=== PATIENT | male | born 1945 | race Caucasian/White ===

== ENCOUNTER 2019-12-07 13:45 | IRF | payer MEDICARE, SELFPAY ==
--- NOTE | 2019-12-07 14:02 | ADMGEN ---
This patient, Rob Quiros, was admitted to [facility] Room 226-01. Patient/family oriented to hospital policies and general routines including ID bracelet, bed and alarms, visiting hours, pain management, procedures, bathroom and other care routines, personal items, smoking policy, room service/diet, and visiting hours. Valuables list has been completed. Information on how to activate the Rapid Response Team has been discussed. Patient/Family are encouraged to report perceived risks to care and to ask questions if they do not understand what they are told or what they should do. 1345 resident arrived to unit, transported by [facility] per ambulance patient stable for transport. alert and oriented
[2019-12-07 15:56] VITALS: BP 133/65; PULSE 72; RESP 20; TEMP 36.1; O2SAT 100
[2019-12-07] MEDS: SENNA/DOCUSATE SODIUM TABLET 1 TAB PO (17:55)
[2019-12-07] MEDS: MUPIROCIN 2% OINT 22 GM TUBE 1 APPLIC TOPICAL (17:55)
[2019-12-07] MEDS: amLODIPine BESYLATE 5 MG TABLET PO (17:55)
[2019-12-07] MEDS: DEXAMETHASONE 2 MG TABLET PO (17:55)
[2019-12-07] MEDS: metFORMIN HCL 500 MG TABLET 1000 MG PO (17:56)
[2019-12-07 20:11] VITALS: BP 132/62; PULSE 86; RESP 18; TEMP 36.2; O2SAT 97
[2019-12-07 20:30] LABS: Glucose Point of Care 298 (65-105)
[2019-12-07] MEDS: CEPHALEXIN 500 MG CAPSULE PO ×2 (22:24→23:33)
[2019-12-07] MEDS: INSULIN GLARGINE (LANTUS) 1,000 UNITS/10 ML VIAL 44 UNITS SUB-Q (22:25)
[2019-12-08] MEDS: CEPHALEXIN 500 MG CAPSULE PO ×4 (05:07→22:14)
[2019-12-08 05:17] VITALS: BP 144/80; PULSE 76; RESP 18; TEMP 35.8; O2SAT 99
[2019-12-08 05:22] LABS: Basophils Percent Auto 0.2 % (0.2-1.2); Hematocrit 41.7 % (42.0-52.0); Hemoglobin 14.3 g/dL (14.0-18.0); Immature Granulocyte Percent A 1.1 % (0-0.5); Lymphocytes Absolute Auto 1.51 K/mm3 (0.9-3.2); Lymphocytes Percent Auto 8.5 % (18.3-44.2); Mean Corpuscular HGB Conc 34.3 g/dl (32-36); Mean Corpuscular Hemoglobin 31.4 pg (26-34); Mean Corpuscular Volume 91.6 fl (80-100); Mean Platelet Volume 10.7 fl (7.4-10.4); Monocytes Absolute Auto 1.3 K/mm3 (0.1-0.6); Monocytes Percent Auto 7.1 % (2.6-8.5); Neutrophils Absolute Auto 14.7 K/mm3 (1.3-6.7); Neutrophils Percent Auto 83.1 % (45.5-73.1); Platelet Count Result 266 k/mm3 (150-375); Red Blood Count 4.55 M/mm3 (4.6-6.20); Red Cell Distribution Width 13.5 % (11.5-14.5); White Blood Count 17.7 K/mm3 (4.5-10.0)
[2019-12-08 05:38] LABS: Anion Gap 8 mmol/L (8-16); Blood Urea Nitrogen 32 mg/dL (9-20); Calcium 8.7 mg/dL (8.4-10.2); Carbon Dioxide 24 mmol/L (22-30); Chloride 102 mmol/L (98-107); Estimated Glomerular Filt Rate > 60; Glucose 174 mg/dL (75-110); Potassium 4.5 mmol/L (3.4-5.0); Sodium 134 mmol/L (137-145)
[2019-12-08 06:50] LABS: Glucose Point of Care 206 (65-105)
[2019-12-08] MEDS: INSULIN ASPART (*BKC) 100 UNITS/ML SUB-Q ×3 (07:11→17:43)
[2019-12-08 08:00] VITALS: PULSE 76; RESP 18; O2SAT 99
[2019-12-08 09:24] LABS: Hemoglobin A1C 7.7 % (<5.7)
[2019-12-08] MEDS: DEXAMETHASONE 2 MG TABLET PO ×2 (09:36→17:37)
[2019-12-08] MEDS: POTASSIUM CHLORIDE 10 MEQ TABLET.ER PO (09:36)
[2019-12-08] MEDS: ATORVASTATIN 20 MG TABLET PO (09:36)
[2019-12-08] MEDS: lisinopriL 20 MG TABLET 60 MG PO (09:36)
[2019-12-08] MEDS: metFORMIN HCL 500 MG TABLET 1000 MG PO ×2 (09:36→17:37)
[2019-12-08] MEDS: CALCIUM CARBONATE (OSCAL) 500 MG TABLET 1000 MG PO (09:37)
[2019-12-08] MEDS: TAMSULOSIN HCL 0.4 MG CAPSULE PO (09:37)
[2019-12-08] MEDS: amLODIPine BESYLATE 5 MG TABLET PO ×2 (09:37→17:36)
[2019-12-08] MEDS: SENNA/DOCUSATE SODIUM TABLET 1 TAB PO (09:38)
[2019-12-08] MEDS: allopurinoL 300 MG TABLET PO (09:38)
[2019-12-08 09:39] VITALS: PULSE 76
[2019-12-08] MEDS: MUPIROCIN 2% OINT 22 GM TUBE 1 APPLIC TOPICAL ×2 (09:39→17:37)
[2019-12-08] MEDS: METOPROLOL TARTRATE 50 MG TAB PO (09:39)
[2019-12-08] MEDS: LIDOCAINE 5% PATCH 1 PATCH TOPICAL (09:39)
[2019-12-08] MEDS: CHOLECALCIFEROL 1,000 UNITS TABLET 5000 UNITS PO (09:39)
[2019-12-08 11:56] LABS: Glucose Point of Care 283 (65-105)
[2019-12-08 12:05] VITALS: TEMP 35.8
[2019-12-08] MEDS: ACETAMINOPHEN 325 MG TABLET 650 MG PO ×2 (12:05→22:13)
--- NOTE | 2019-12-08 12:44 | WPDREHABHP ---
H&P: HPI History of Present Illness Date/Time: 12/08/19 12:44 Chief complaint: cervical myelopathy Narrative: Rob Quiros is a 74 year old maleAdmitted to the rehab floor of [facility] with the primary rehab impairment category of the spinal cord dysfunction that is known traumatic in nature and with etiological diagnosis of C3-C4 C5 spinal cord edema and compression with cervical myelopathy patient is 74 years old male with past medical history of diabetes mellitus hypertension hyperlipidemia doubt degenerative disc disease and carpal tunnel syndrome he initially presented to [facility] on November 29, 2019 to be evaluated for generalized weakness and was admitted to [facility] in [facility] from October 14, 2019 through October 19, 2019 after a fall he was found to have lumbar spine degenerative disc disease and was not interested in surgery at that particular time. After being discharged from [facility] he was admitted to [address] [place] [address] where he stayed for 17 days and then discharged home. After being at home the patient fell twice. He was admitted to [facility] from [id number] to [id number] and had a brain MRI that was negative. All attempts of his skilled rehabilitation did nothing to improve the patient's symptom he reported his legs buckling recently while being assisted to his wheelchair and he had to ease himself or to his buttocks. He endorses pain in the buttocks since this event patient was planning to get carpal tunnel surgery as he struggles with daily tasks and holding things. MRI of the cervical spine this admission was concerning for cord compression neurosurgery was consulted and the patient was admitted for further evaluation and treatment. Neurosurgery started the patient on high-dose of his steroids and pace the patient hard cervical collar at all times but no exception. Patient underwent a cervical fusion and durotomy on December 04, [address] yusuf Gandhi postoperative the patient experiencing acute blood-loss became anemic became hypertensive and also developed a steroid induced leukocytosis and acute postoperative pain. He is currently hemodynamically stable. Hypertension is controlled with amlodipine, diltiazem, lisinopril and metoprolol leukocytosis is steroid-induced and patient remains on his steroids and they have been switched to oral. Acute postoperative pain managed with oral analgesics HERNANDO drain has been removed 40 catheter has been removed the patient voiding spontaneously doubt any issues he will not be on chemical prophylaxis for DVT point given his recent surgery patient has not traveled outside the [place] or had contact with someone was ill that his travel outside the [place] in the past 21 days. The patient has no traveled to [place] area of the [place] that is experiencing known transmission of the Coronavirus and has not had close personal contact with anyone that has. the patient does not have a fever he is not experiencing lower respiratory illness symptoms he was tested for COVID-19 on November 29, 2019 and the results were negative therapy was initiated at the acute care facility and the patient was transferred to us from [facility] on December 07, 2019 HISTORY OF PRESENT ILLNESS: The patient's primary rehab impairment category is [ the spinal cord dysfunction nontraumatic in nature] The etiologic diagnosis is [ etiological diagnosis is C3-C4 C5 cord edema and compression with cervical myelopathy] I saw this patient [id number] on [ patient was seen [id number] at 10:00 a.m. on December 08, 2019] Therapy was initiated at the acute care facility and the patient transferred to us from [[facility]] on [] FALLS OR SURGERIES: The patient has had [no] major surgeries in the 100 days prior to admission. They had [no] falls in the past year. They had [no] falls with injury in the past year. PAST MEDICAL HISTORY: back pain carpal tunnel syndrome diabetes mellitus
[2019-12-08 14:00] VITALS: BP 117/54; PULSE 78; RESP 16; TEMP 36.8; O2SAT 98
[2019-12-08 16:16] LABS: Glucose Point of Care 265 (65-105)
[2019-12-08] MEDS: MAGNESIUM CITRATE 300 ML BTL PO (17:35)
--- NOTE | 2019-12-08 18:22 | PC.NURSE ---
no drainage noted to neck incision. mepilex changed. no fever noted. Dr. Heck aware of slight swelling and said if continues to call surgeon on Tuesday-. patient had results from [facility].
[2019-12-08 20:16] LABS: Glucose Point of Care 210 (65-105)
[2019-12-08 20:17] VITALS: BP 120/58; PULSE 79; RESP 20; TEMP 36.2; O2SAT 98
[2019-12-08] MEDS: INSULIN GLARGINE (LANTUS) 1,000 UNITS/10 ML VIAL 44 UNITS SUB-Q (20:21)
[2019-12-09] MEDS: CEPHALEXIN 500 MG CAPSULE PO ×3 (05:16→17:34)
[2019-12-09 05:36] VITALS: BP 115/65; PULSE 67; RESP 18; TEMP 36.1; O2SAT 99
[2019-12-09 06:46] LABS: Glucose Point of Care 120 (65-105)
[2019-12-09 08:00] VITALS: PULSE 67; RESP 18; O2SAT 99
[2019-12-09] MEDS: ATORVASTATIN 20 MG TABLET PO (09:10)
[2019-12-09] MEDS: lisinopriL 20 MG TABLET 60 MG PO (09:10)
[2019-12-09] MEDS: TAMSULOSIN HCL 0.4 MG CAPSULE PO (09:10)
[2019-12-09] MEDS: CHOLECALCIFEROL 1,000 UNITS TABLET 5000 UNITS PO (09:11)
[2019-12-09] MEDS: amLODIPine BESYLATE 5 MG TABLET PO ×2 (09:11→17:33)
[2019-12-09] MEDS: CALCIUM CARBONATE (OSCAL) 500 MG TABLET 1000 MG PO (09:11)
[2019-12-09] MEDS: POTASSIUM CHLORIDE 10 MEQ TABLET.ER PO (09:12)
[2019-12-09] MEDS: metFORMIN HCL 500 MG TABLET 1000 MG PO ×2 (09:12→17:33)
[2019-12-09] MEDS: allopurinoL 300 MG TABLET PO (09:12)
[2019-12-09 09:13] VITALS: PULSE 67
[2019-12-09] MEDS: METOPROLOL TARTRATE 50 MG TAB PO (09:13)
[2019-12-09] MEDS: LIDOCAINE 5% PATCH 1 PATCH TOPICAL (09:13)
[2019-12-09] MEDS: DEXAMETHASONE 2 MG TABLET PO ×2 (09:13→17:32)
[2019-12-09] MEDS: MUPIROCIN 2% OINT 22 GM TUBE 1 APPLIC TOPICAL ×2 (09:13→17:33)
[2019-12-09] MEDS: polyethylene glycoL 3350 17 GM POWD.PACK PO (09:14)
[2019-12-09 12:01] LABS: Glucose Point of Care 213 (65-105)
[2019-12-09] MEDS: INSULIN ASPART (*BKC) 100 UNITS/ML SUB-Q ×2 (13:06→17:36)
[2019-12-09 13:09] VITALS: TEMP 36.1
[2019-12-09] MEDS: ACETAMINOPHEN 325 MG TABLET 650 MG PO (13:09)
[2019-12-09 14:00] VITALS: BP 143/52; PULSE 72; RESP 18; TEMP 36.4; O2SAT 96
[2019-12-09 16:52] LABS: Glucose Point of Care 292 (65-105)
[2019-12-09] MEDS: INSULIN GLARGINE (LANTUS) 1,000 UNITS/10 ML VIAL 44 UNITS SUB-Q (20:18)
[2019-12-09 20:50] LABS: Glucose Point of Care 389 (65-105)
[2019-12-09 22:00] VITALS: BP 120/54; PULSE 77; RESP 18; TEMP 36.4; O2SAT 98
[2019-12-10] MEDS: ACETAMINOPHEN 325 MG TABLET 650 MG PO ×2 (01:23→15:43)
[2019-12-10] MEDS: CEPHALEXIN 500 MG CAPSULE PO ×4 (01:23→17:19)
[2019-12-10 05:07] LABS: Basophils Percent Auto 0.2 % (0.2-1.2); Eosinophils Percent Auto 0.1 % (0-4.4); Hematocrit 37.3 % (42.0-52.0); Hemoglobin 12.7 g/dL (14.0-18.0); Immature Granulocyte Absolute 0.28 K/mm3 (0.00-0.031); Immature Granulocyte Percent A 1.6 % (0-0.5); Lymphocytes Absolute Auto 1.42 K/mm3 (0.9-3.2); Lymphocytes Percent Auto 8.2 % (18.3-44.2); Mean Corpuscular Hemoglobin 31.2 pg (26-34); Mean Corpuscular Volume 91.6 fl (80-100); Mean Platelet Volume 10.6 fl (7.4-10.4); Monocytes Absolute Auto 0.9 K/mm3 (0.1-0.6); Monocytes Percent Auto 5.2 % (2.6-8.5); Neutrophils Absolute Auto 14.7 K/mm3 (1.3-6.7); Neutrophils Percent Auto 84.7 % (45.5-73.1); Platelet Count Result 243 k/mm3 (150-375); Red Blood Count 4.07 M/mm3 (4.6-6.20); Red Cell Distribution Width 13.2 % (11.5-14.5); White Blood Count 17.3 K/mm3 (4.5-10.0)
[2019-12-10 06:00] VITALS: BP 137/70; PULSE 70; RESP 16; TEMP 36.6; O2SAT 97
[2019-12-10 06:36] LABS: Glucose Point of Care 121 (65-105)
[2019-12-10] MEDS: DEXAMETHASONE 2 MG TABLET PO ×2 (08:33→17:19)
[2019-12-10] MEDS: metFORMIN HCL 500 MG TABLET 1000 MG PO ×2 (08:34→17:19)
[2019-12-10] MEDS: allopurinoL 300 MG TABLET PO (08:35)
[2019-12-10] MEDS: ATORVASTATIN 20 MG TABLET PO (08:35)
[2019-12-10] MEDS: amLODIPine BESYLATE 5 MG TABLET PO ×2 (08:35→17:19)
[2019-12-10] MEDS: CALCIUM CARBONATE (OSCAL) 500 MG TABLET 1000 MG PO (08:36)
[2019-12-10 08:37] VITALS: PULSE 70
[2019-12-10] MEDS: METOPROLOL TARTRATE 50 MG TAB PO (08:37)
[2019-12-10] MEDS: lisinopriL 20 MG TABLET 60 MG PO (08:37)
[2019-12-10] MEDS: LIDOCAINE 5% PATCH 1 PATCH TOPICAL (08:37)
[2019-12-10] MEDS: POTASSIUM CHLORIDE 10 MEQ TABLET.ER PO (08:38)
[2019-12-10] MEDS: TAMSULOSIN HCL 0.4 MG CAPSULE PO (08:39)
[2019-12-10] MEDS: MUPIROCIN 2% OINT 22 GM TUBE 1 APPLIC TOPICAL ×2 (08:39→17:21)
[2019-12-10] MEDS: CHOLECALCIFEROL 1,000 UNITS TABLET 5000 UNITS PO (09:28)
--- NOTE | 2019-12-10 12:03 | RPD ---
INDIVIDUALIZED PLAN OF CARE FOR Rob Quiros Brief Synthesis of Pre-Admission Screen, Post-Admission Evaluation and Therapy Evaluations: The patient presents to rehab with C3-C5 cord edema and compression with cervical myelopathy. Comorbidities include hypertension, insulin-dependent diabetes mellitus, dyslipidemia, gout, weakness, acute postoperative pain, acute blood loss anemia, hallucinations, benign prostatic hypertrophy, right leg and foot swelling, cervical myelopathy, and ataxic gait.The complexity of the patient's medical management, nursing, and therapy needs require an inpatient rehab hospital stay with a physician-led interdisciplinary team approach. The patient?s needs will be best met in an intensive program vs. at a lower level of care. The patient requires physician services for medical oversight, management of post-op complications in setting of present comorbidities, and pain management. The patient requires nursing services for anticoagulation therapy, diabetes training, DVT prophylactics, infection protection, medication management and education, pressure relief, and wound care. Deficits include:ADLs, Balance, Endurance, Family Training/Education, Mobility, Pain Management, ROM, Safety, Strength, and Transfers Echocardiograph Technician/Case Management for: Discharge Planning and Patient/Family Counseling Physical Therapy: 5 days per week for 90 minutes. Treatments may include: Therapeutic Exercise, Gait Training, Neuromuscular Re-education, Transfer Training, Community Reintegration, Bed Mobility, Patient/Family Education, Wheelchair Mobility Group Therapy/Concurrent Therapy Rationales: -Improve attention span during functional activities in a distracted environment. -Enhance problem solving and/or adequate judgment skills during functional activities in a distracted environment. -Promote increased safety awareness in a distracted environment to reduce fall risk with functional tasks, transfers, and ambulation to allow a more safe, self-sufficient return to the home environment. -Improve dynamic balance skills to promote safety and independence with functional activities in a distracted environment for maximum gain. Occupational Therapy: 5 days per week for 90 minutes. Treatments may include: Therapeutic Exercise, Therapeutic Activity, Cognitive Training, Self-Care Transfer Training, Community Reintegration, Home Management, Patient/Family Education, Wheelchair Mobility Training, Energy Conservation Training Group Therapy/Concurrent Therapy Rationales: -Allow therapist to observe and teach generalization and carry-over of skills learned in individual therapy. -Enhance problem solving and sequencing skills during therapeutic activities in a distracted environment. -Promote increased safety awareness in a realistic setting to reduce fall risk with functional tasks due to visual and verbal distractions. -Increase functional level with ADLs, ADL transfers and use of adaptive equipment through therapeutic activities with others while promoting safety to allow a more safe, self-sufficient return home. Medical Prognosis: Good Anticipated Length of Stay: 10 days Rehab Goals: Eating Goal: 06-Independent Oral Hygiene Goal: 06-Independent Toileting Hygiene Goal: 06-Independent Shower/Bathe Self Goal: 06-Independent Upper Body Dressing Goal: 06-Independent Lower Body Dressing Goal: 06-Independent Putting On/Taking Off Footwear Goal: 06-Independent Rolling Left and Right Goal: 06-Independent Sit to Lying Goal: 06-Independent Lying to Sitting on Side of Bed Goal: 06-Independent Sit to Stand Goal: 06-Independent Chair/Fqe-mu-[id number] Transfer Goal: 06-Independent Toilet Transfer Goal: 06-Independent Car Transfer Goal: 06-Independent Walk 10' Goal: 06-Independent Walk 50' with Two Turns Goal: 06-Independent Walk 150' Goal: 06-Independent Walk 10' on Uneven Surface Goal: 06-Independent 1 Step (Curb) Goal: 06-Independent 4 Steps Goal: 06-Independent 12 Step
--- NOTE | 2019-12-10 12:38 | WPDNEURORHBP ---
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 there is no headache nausea vomiting chest pain shortness of breath fever chills sore throat Review of Systems Review of Systems: All systems reviewed & are unremarkable except as noted in HPI and below Functional Status Ambulation Ability Ability to Ambulate 10 Feet: Standby Assistance Ability to Ambulate 50 Feet With 2 Turns: Standby Assistance Ability to Ambulate 150 Feet: Standby Assistance Ambulation Assistive Devices: Walker, Wheeled Transfers Ability Ability to Transfer In/Out of Chair: Standby Assistance Exam Const: General: comfortable and no acute distress HENMT: General nose exam: Normal nares present Mouth: Yes moist mucous membranes Eyes: General: appearance normal, both eyes and all related structures Neck: Other: this is swelling of his right neck which he feels is more than usual and our nurse will take the picture of it and will transfer to to the surgeon who operated on him to see if they want to see him or recommended anything else Resp: Effort & Inspection: normal respiratory effort Auscultation: clear to auscultation bilaterally Cardio: Rate: regular rate Rhythm: regular rhythm GI: GI Palp: Yes Soft to palpation Auscultation: normal bowel sounds Skin: General skin exam: normal color and no rashes or lesions noted Neuro: Other: patient is awake alert well oriented time place and person speech and language functions are normal the strength in both upper lower extremities are improving and he is making excellent progress Extrem: General: normal to inspection Other: evidence of 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 Psych: Mental Status: mental status grossly normal Objective Data Vital Signs Vital Signs: Vital Signs - 24 hr 12/09/19 13:09 12/09/19 14:00 12/09/19 22:00 Temperature 36.1 C L 36.4 C L 36.4 C Pulse Rate 72 77 Respiratory Rate 18 18 Blood Pressure 143/52 H 120/54 L Pulse Oximetry 96 98 12/10/19 06:00 12/10/19 08:37 Temperature 36.6 C Pulse Rate 70 70 Respiratory Rate 16 Blood Pressure 137/70 Pulse Oximetry 97 Intake/Output Intake/Output: Intake & Output 12/07/19 12/08/19 12/09/19 12/10/19 23:59 23:59 23:59 23:59 Intake Total 480 720 720 480 Balance 480 720 720 480 Meds/Results Medications: Active Medications Generic Name Dose Route Start Last Admin Trade Name Freq PRN Reason Stop Dose Admin Acetaminophen 650 mg 12/07/19 16:43 12/10/19 01:23 Tylenol Tablet PO 650 mg Q4H PRN Administration Mild Pain (1-3) Hydrocodone Bitart/Acetaminophen 5 - 325 tab 12/07/19 16:43 [place] 5-325 Mg PO Q8H PRN Pain (Scale Score 7-10) Allopurinol 300 mg 12/08/19 09:00 12/10/19 08:35 Zyloprim PO 300 mg DAILY KIA Administration Amlodipine Besylate 5 mg 12/07/19 17:00 12/10/19 08:35 Norvasc PO 5 mg BID KIA Administration Atorvastatin Calcium 20 mg 12/08/19 09:00 12/10/19 08:35 Lipitor PO 20 mg DAILY KIA Administration Calcium Carbonate 1,000 mg 12/08/19 09:00 12/10/19 08:36 Oscal 500 Mg PO 01/07/20 09:01 1,000 mg DAILY KIA Administration Cephalexin HCl 500 mg 12/07/19 18:00 12/10/19 12:29 Keflex Capsule PO 500 mg Q6HR KIA Administration Dexamethasone 2 mg 12/07/19 17:00 12/10/19 08:33 Dexamethasone Po PO 2 mg BIDWM KIA Administration Dextrose 12.5 gm 12/07/19 16:35 Dextrose 50% Syringe IV PUSH PRN PRN Hypoglycemia
[2019-12-10 12:43] LABS: Glucose Point of Care 183 (65-105)
[2019-12-10 14:00] VITALS: BP 127/56; PULSE 76; RESP 20; TEMP 36.1; O2SAT 98
[2019-12-10 14:03] VITALS: BMI 26.4
[2019-12-10 14:04] VITALS: BMI 26.4
--- NOTE | 2019-12-10 15:02 | PCNSR ---
On 12/10/19, the student, Carlos Elliott, provided care and completed [facility] documentation on this patient. I have reviewed the student's documentation and agree with the findings.
[2019-12-10] MEDS: SIMETHICONE 80 MG TAB.CHEW PO (17:19)
[2019-12-10 17:57] LABS: Glucose Point of Care 193 (65-105)
[2019-12-10] MEDS: INSULIN GLARGINE (LANTUS) 1,000 UNITS/10 ML VIAL 44 UNITS SUB-Q (20:03)
[2019-12-10 20:09] LABS: Glucose Point of Care 244 (65-105)
[2019-12-10 20:32] VITALS: BP 149/88; PULSE 73; RESP 20; TEMP 36.4; O2SAT 98
[2019-12-11] MEDS: CEPHALEXIN 500 MG CAPSULE PO ×4 (00:01→16:33)
[2019-12-11 05:56] VITALS: BP 136/62; PULSE 69; RESP 18; TEMP 36; O2SAT 97
[2019-12-11 06:39] LABS: Glucose Point of Care 157 (65-105)
[2019-12-11] MEDS: SIMETHICONE 80 MG TAB.CHEW PO ×2 (08:02→16:33)
[2019-12-11] MEDS: DEXAMETHASONE 2 MG TABLET PO ×2 (09:38→16:33)
[2019-12-11] MEDS: metFORMIN HCL 500 MG TABLET 1000 MG PO ×2 (09:38→16:33)
[2019-12-11] MEDS: lisinopriL 20 MG TABLET 60 MG PO (09:38)
[2019-12-11] MEDS: CALCIUM CARBONATE (OSCAL) 500 MG TABLET 1000 MG PO (09:39)
[2019-12-11] MEDS: ATORVASTATIN 20 MG TABLET PO (09:39)
[2019-12-11] MEDS: amLODIPine BESYLATE 5 MG TABLET PO ×2 (09:39→16:33)
[2019-12-11] MEDS: TAMSULOSIN HCL 0.4 MG CAPSULE PO (09:39)
[2019-12-11 09:40] VITALS: PULSE 70
[2019-12-11] MEDS: POTASSIUM CHLORIDE 10 MEQ TABLET.ER PO (09:40)
[2019-12-11] MEDS: METOPROLOL TARTRATE 50 MG TAB PO (09:40)
[2019-12-11] MEDS: allopurinoL 300 MG TABLET PO (09:41)
[2019-12-11] MEDS: CHOLECALCIFEROL 1,000 UNITS TABLET 5000 UNITS PO (09:41)
[2019-12-11] MEDS: polyethylene glycoL 3350 17 GM POWD.PACK PO (09:41)
[2019-12-11] MEDS: LIDOCAINE 5% PATCH 1 PATCH TOPICAL (09:41)
[2019-12-11] MEDS: MUPIROCIN 2% OINT 22 GM TUBE 1 APPLIC TOPICAL ×2 (09:42→17:00)
[2019-12-11] MEDS: ACETAMINOPHEN 325 MG TABLET 650 MG PO (12:18)
[2019-12-11 12:23] LABS: Glucose Point of Care 154 (65-105)
--- NOTE | 2019-12-11 12:37 | WPDNEURORHBP ---
Subjective Date/time seen: 12/11/19 12:37 Interval history: this pleasant 74-year-old gentleman is here post surgery for cervical radiculopathy/myelopathy the incision site remains a little bit swollen but no sign of infection we are still trying to get hold of the surgeon find out if they want us to do differently the patient is doing fairly well in denies any headache nausea vomiting chest pain shortness of breath family members were available for telephone conference Review of Systems Review of Systems: All systems reviewed & are unremarkable except as noted in HPI and below Functional Status Ambulation Ability Ability to Ambulate 10 Feet: Standby Assistance Ability to Ambulate 50 Feet With 2 Turns: Standby Assistance Ability to Ambulate 150 Feet: Standby Assistance Ambulation Assistive Devices: Walker, Wheeled Transfers Ability Ability to Transfer In/Out of Chair: Standby Assistance Exam Const: General: comfortable and no acute distress HENMT: General nose exam: Normal nares present Mouth: Yes moist mucous membranes Eyes: General: appearance normal, both eyes and all related structures Neck: Neck: supple and no JVD Other: the swelling at the surgical site for the anterior spinal fusion is clean but swollen without any sign of infection Resp: Effort & Inspection: normal respiratory effort Auscultation: clear to auscultation bilaterally Cardio: Rate: regular rate Rhythm: regular rhythm GI: GI Palp: Yes Soft to palpation Auscultation: normal bowel sounds Skin: General skin exam: normal color and no rashes or lesions noted Neuro: Other: patient is awake alert well oriented time place person is speech and language functions are normal cranial exam shows normal the strength in both upper lower extremities insist improving likewise the sensory subjective complaints in the hands primarily are also improving Extrem: General: normal to inspection Psych: Mental Status: mental status grossly normal Objective Data Vital Signs Vital Signs: Vital Signs - 24 hr 12/10/19 14:00 12/10/19 20:32 12/11/19 05:56 Temperature 36.1 C L 36.4 C L 36.0 C L Pulse Rate 76 73 69 Respiratory Rate 20 20 18 Blood Pressure 127/56 L 149/88 H 136/62 Pulse Oximetry 98 98 97 12/11/19 09:40 Temperature Pulse Rate 70 Respiratory Rate Blood Pressure Pulse Oximetry Intake/Output Intake/Output: Intake & Output 12/08/19 12/09/19 12/10/19 12/11/19 23:59 23:59 23:59 23:59 Intake Total 582 072 0106 480 Balance 038 504 2442 480 Meds/Results Medications: Active Medications Generic Name Dose Route Start Last Admin Trade Name Freq PRN Reason Stop Dose Admin Acetaminophen 650 mg 12/07/19 16:43 12/11/19 12:18 Tylenol Tablet PO 650 mg Q4H PRN Administration Mild Pain (1-3) Hydrocodone Bitart/Acetaminophen 5 - 325 tab 12/07/19 16:43 [place] 5-325 Mg PO Q8H PRN Pain (Scale Score 7-10) Allopurinol 300 mg 12/08/19 09:00 12/11/19 09:41 Zyloprim PO 300 mg DAILY KIA Administration Amlodipine Besylate 5 mg 12/07/19 17:00 12/11/19 09:39 Norvasc PO 5 mg BID KIA Administration Atorvastatin Calcium 20 mg 12/08/19 09:00 12/11/19 09:39 Lipitor PO 20 mg DAILY KIA Administration Calcium Carbonate 1,000 mg 12/08/19 09:00 12/11/19 09:39 Oscal 500 Mg PO 01/07/20 09:01 1,000 mg DAILY KIA Administration Cephalexin HCl 500 mg 12/07/19 18:00 12/11/19 12:10 Keflex Capsule PO 500 mg Q6HR KIA Administration Dexamethasone 2 mg 12/07/19 17:00 12/11/19 09:38 Dexamethasone Po PO 2 mg BIDWM KIA Administration Dextrose 12.5 gm 12/07/19 16:35 Dextrose 50% Syringe IV PUSH PRN PRN Hypoglycemia Protocol Diltiazem HCl 120 mg 12/08/19 09:00 12/11/19 09:39 Cardizem Cd PO 01/07/20 09:01 120 mg DAILY KIA Administration Glucagon 1 mg 12/07/19 16:35 Glucagon For Inj IM PRN PRN Hypoglycemia Protocol G
[2019-12-11 14:00] VITALS: BP 120/56; PULSE 76; RESP 20; TEMP 36.3; O2SAT 98
--- NOTE | 2019-12-11 16:21 | PC.NURSE ---
2950 Picture of wound e-mailed to dr. Lamb nurse this am. Rec'd call at this time she stated that reviewed photograph and stated that the wound looked ok, I had also asked about asa dose that is supposed to start on 12/14/2019. Suzy will call back on with that information
[2019-12-11 17:06] LABS: Glucose Point of Care 180 (65-105)
[2019-12-11 20:06] VITALS: BP 132/59; PULSE 78; RESP 18; TEMP 36.2; O2SAT 99
[2019-12-11] MEDS: INSULIN GLARGINE (LANTUS) 1,000 UNITS/10 ML VIAL 44 UNITS SUB-Q (20:22)
[2019-12-11 20:37] LABS: Glucose Point of Care 277 (65-105)
[2019-12-12] MEDS: CEPHALEXIN 500 MG CAPSULE PO ×5 (00:14→20:27)
[2019-12-12 05:14] VITALS: BP 133/76; PULSE 65; RESP 18; TEMP 36.1; O2SAT 99
[2019-12-12 06:29] LABS: Glucose Point of Care 116 (65-105)
[2019-12-12] MEDS: LIDOCAINE 5% PATCH 1 PATCH TOPICAL (09:03)
[2019-12-12] MEDS: polyethylene glycoL 3350 17 GM POWD.PACK PO (09:03)
[2019-12-12] MEDS: CALCIUM CARBONATE (OSCAL) 500 MG TABLET 1000 MG PO (09:04)
[2019-12-12] MEDS: allopurinoL 300 MG TABLET PO (09:04)
[2019-12-12] MEDS: lisinopriL 20 MG TABLET 60 MG PO (09:04)
[2019-12-12] MEDS: ATORVASTATIN 20 MG TABLET PO (09:04)
[2019-12-12] MEDS: DEXAMETHASONE 2 MG TABLET PO ×2 (09:04→16:22)
[2019-12-12] MEDS: amLODIPine BESYLATE 5 MG TABLET PO ×2 (09:04→16:22)
[2019-12-12] MEDS: metFORMIN HCL 500 MG TABLET 1000 MG PO ×2 (09:04→16:22)
[2019-12-12 09:05] VITALS: PULSE 65
[2019-12-12] MEDS: CHOLECALCIFEROL 1,000 UNITS TABLET 5000 UNITS PO (09:05)
[2019-12-12] MEDS: METOPROLOL TARTRATE 50 MG TAB PO (09:05)
[2019-12-12] MEDS: TAMSULOSIN HCL 0.4 MG CAPSULE PO (09:06)
[2019-12-12] MEDS: SENNA/DOCUSATE SODIUM TABLET 1 TAB PO (09:06)
[2019-12-12] MEDS: POTASSIUM CHLORIDE 10 MEQ TABLET.ER PO (09:06)
[2019-12-12] MEDS: MUPIROCIN 2% OINT 22 GM TUBE 1 APPLIC TOPICAL ×2 (09:06→17:04)
[2019-12-12] MEDS: ACETAMINOPHEN 325 MG TABLET 650 MG PO (12:01)
[2019-12-12 12:13] LABS: Glucose Point of Care 100 (65-105)
--- NOTE | 2019-12-12 12:33 | WPDNEURORHBP ---
Subjective Date/time seen: 12/12/19 12:33 Interval history: this 74-year-old gentleman is here after having had anterior cervical fusion/ for cervical myelopathy the incisions pictures were sent to the treating surgeon and he is satisfied at the weight looks the patient has to keep her head or his aide rather 40? in a position for about 10 days postop and he has made arrangements for the same at home. The patient refused taking aspirin as he says that he cannot tolerate that he does have symptoms of carpal tunnel syndrome which is stable the weakness of the lower extremities and the upper extremities are getting better he denies any headache nausea vomiting chest pain shortness of breath fever chills sore throat Review of Systems Review of Systems: All systems reviewed & are unremarkable except as noted in HPI and below Functional Status Ambulation Ability Ability to Ambulate 10 Feet: Independent Ability to Ambulate 50 Feet With 2 Turns: Independent Ability to Ambulate 150 Feet: Standby Assistance Ambulation Assistive Devices: Walker, Wheeled Transfers Ability Ability to Transfer In/Out of Chair: Standby Assistance Exam Const: General: comfortable and no acute distress HENMT: General nose exam: Normal nares present Mouth: Yes moist mucous membranes Eyes: General: appearance normal, both eyes and all related structures Neck: Neck: supple and no JVD Other: the incision site at the right side of the neck is clean and healthy and swelling seems to be less no sign of infection is noted Resp: Effort & Inspection: normal respiratory effort Auscultation: clear to auscultation bilaterally Cardio: Rate: regular rate Rhythm: regular rhythm GI: GI Palp: Yes Soft to palpation Auscultation: normal bowel sounds Skin: General skin exam: normal color and no rashes or lesions noted Neuro: Other: the patient is awake alert and well oriented with normal speech and language function normal cranial examination the weakness of the lower extremities more so than the upper extremities is getting better and the sensory deficit is also getting better primarily in his upper extremities Extrem: General: normal to inspection Psych: Mental Status: mental status grossly normal Objective Data Vital Signs Vital Signs: Vital Signs - 24 hr 12/11/19 14:00 12/11/19 20:06 12/12/19 05:14 Temperature 36.3 C L 36.2 C L 36.1 C L Pulse Rate 76 78 65 Respiratory Rate 20 18 18 Blood Pressure 120/56 L 132/59 L 133/76 Pulse Oximetry 98 99 99 12/12/19 09:05 Temperature Pulse Rate 65 Respiratory Rate Blood Pressure Pulse Oximetry Intake/Output Intake/Output: Intake & Output 12/09/19 12/10/19 12/11/19 12/12/19 23:59 23:59 23:59 23:59 Intake Total 720 1440 1320 240 Balance 720 1440 1320 240 Meds/Results Medications: Active Medications Generic Name Dose Route Start Last Admin Trade Name Freq PRN Reason Stop Dose Admin Acetaminophen 650 mg 12/07/19 16:43 12/12/19 12:01 Tylenol Tablet PO 650 mg Q4H PRN Administration Mild Pain (1-3) Hydrocodone Bitart/Acetaminophen 5 - 325 tab 12/07/19 16:43 [place] 5-325 Mg PO Q8H PRN Pain (Scale Score 7-10) Allopurinol 300 mg 12/08/19 09:00 12/12/19 09:04 Zyloprim PO 300 mg DAILY KIA Administration Amlodipine Besylate 5 mg 12/07/19 17:00 12/12/19 09:04 Norvasc PO 5 mg BID KIA Administration Atorvastatin Calcium 20 mg 12/08/19 09:00 12/12/19 09:04 Lipitor PO 20 mg DAILY KIA Administration Calcium Carbonate 1,000 mg 12/08/19 09:00 12/12/19 09:04 Oscal 500 Mg PO 01/07/20 09:01 1,000 mg DAILY KIA Administration Cephalexin HCl 500 mg 12/07/19 18:00 12/12/19 12:02 Keflex Capsule PO 500 mg Q6HR KIA Administration Dexamethasone 2 mg 12/07/19 17:00 12/12/19 09:04 Dexamethasone Po PO 2 mg BIDWM KIA Administration Dextrose 12.5 gm 12/07/19 16:35 Dextrose 50% Syringe IV PUSH PRN PRN
[2019-12-12 14:00] VITALS: BP 139/73; PULSE 77; RESP 18; TEMP 36.2; O2SAT 98
--- NOTE | 2019-12-12 15:25 | PC.NURSE ---
following up with transfer order to restart asa after seven days...patient refuses to take, states he is aware that his pcp advised him to take an asa daily, told me he refuses to take an aspirin, he takes enough medicine already PCP office made aware
[2019-12-12 16:34] LABS: Glucose Point of Care 187 (65-105)
[2019-12-12] MEDS: INSULIN GLARGINE (LANTUS) 1,000 UNITS/10 ML VIAL 44 UNITS SUB-Q (20:44)
[2019-12-12 21:09] LABS: Glucose Point of Care 283 (65-105)
[2019-12-12 22:00] VITALS: BP 155/59; PULSE 80; RESP 16; TEMP 36.1; O2SAT 99
[2019-12-13 04:31] VITALS: BP 154/72; PULSE 79; RESP 16; TEMP 36.1; O2SAT 100
[2019-12-13] MEDS: CEPHALEXIN 500 MG CAPSULE PO ×3 (05:38→17:17)
[2019-12-13 06:11] LABS: Glucose Point of Care 83 (65-105)
[2019-12-13] MEDS: allopurinoL 300 MG TABLET PO (08:31)
[2019-12-13] MEDS: polyethylene glycoL 3350 17 GM POWD.PACK PO (08:31)
[2019-12-13] MEDS: CALCIUM CARBONATE (OSCAL) 500 MG TABLET 1000 MG PO (08:31)
[2019-12-13] MEDS: lisinopriL 20 MG TABLET 60 MG PO (08:31)
[2019-12-13] MEDS: LIDOCAINE 5% PATCH 1 PATCH TOPICAL (08:31)
[2019-12-13] MEDS: TAMSULOSIN HCL 0.4 MG CAPSULE PO (08:31)
[2019-12-13] MEDS: CHOLECALCIFEROL 1,000 UNITS TABLET 5000 UNITS PO (08:31)
[2019-12-13 08:32] VITALS: PULSE 79
[2019-12-13] MEDS: MUPIROCIN 2% OINT 22 GM TUBE 1 APPLIC TOPICAL ×2 (08:32→17:18)
[2019-12-13] MEDS: amLODIPine BESYLATE 5 MG TABLET PO ×2 (08:32→17:19)
[2019-12-13] MEDS: ATORVASTATIN 20 MG TABLET PO (08:32)
[2019-12-13] MEDS: DEXAMETHASONE 2 MG TABLET PO ×2 (08:32→17:19)
[2019-12-13] MEDS: SENNA/DOCUSATE SODIUM TABLET 1 TAB PO (08:32)
[2019-12-13] MEDS: METOPROLOL TARTRATE 50 MG TAB PO (08:32)
[2019-12-13] MEDS: metFORMIN HCL 500 MG TABLET 1000 MG PO ×2 (08:32→17:18)
[2019-12-13] MEDS: POTASSIUM CHLORIDE 10 MEQ TABLET.ER PO (08:32)
[2019-12-13 11:45] LABS: Glucose Point of Care 100 (65-105)
[2019-12-13 14:00] VITALS: BP 146/64; PULSE 82; RESP 18; TEMP 36.2; O2SAT 99
--- NOTE | 2019-12-13 14:50 | PCCCNOTE ---
On 12/13/19, the student, [Ag Wood ], provided care and completed [facility] documentation on this patient. I have reviewed the student's documentation and agree with the findings.
[2019-12-13 16:56] LABS: Glucose Point of Care 163 (65-105)
[2019-12-13] MEDS: INSULIN GLARGINE (LANTUS) 1,000 UNITS/10 ML VIAL 44 UNITS SUB-Q (20:45)
[2019-12-13 20:55] LABS: Glucose Point of Care 248 (65-105)
[2019-12-13 21:38] VITALS: BP 126/59; PULSE 70; RESP 18; TEMP 35.5; O2SAT 98
[2019-12-14] MEDS: CEPHALEXIN 500 MG CAPSULE PO ×4 (00:20→17:55)
[2019-12-14 05:59] VITALS: BP 133/69; PULSE 78; RESP 18; TEMP 35.9; O2SAT 99
[2019-12-14 07:02] LABS: Glucose Point of Care 91 (65-105)
[2019-12-14] MEDS: DEXAMETHASONE 2 MG TABLET PO ×2 (08:27→17:55)
[2019-12-14] MEDS: metFORMIN HCL 500 MG TABLET 1000 MG PO ×2 (08:27→17:55)
[2019-12-14] MEDS: lisinopriL 20 MG TABLET 60 MG PO (08:27)
[2019-12-14 08:28] VITALS: PULSE 78
[2019-12-14] MEDS: allopurinoL 300 MG TABLET PO (08:28)
[2019-12-14] MEDS: ATORVASTATIN 20 MG TABLET PO (08:28)
[2019-12-14] MEDS: POTASSIUM CHLORIDE 10 MEQ TABLET.ER PO (08:28)
[2019-12-14] MEDS: amLODIPine BESYLATE 5 MG TABLET PO ×2 (08:28→17:56)
[2019-12-14] MEDS: TAMSULOSIN HCL 0.4 MG CAPSULE PO (08:28)
[2019-12-14] MEDS: METOPROLOL TARTRATE 50 MG TAB PO (08:28)
[2019-12-14] MEDS: CHOLECALCIFEROL 1,000 UNITS TABLET 5000 UNITS PO (08:29)
[2019-12-14] MEDS: polyethylene glycoL 3350 17 GM POWD.PACK PO (08:29)
[2019-12-14] MEDS: LIDOCAINE 5% PATCH 1 PATCH TOPICAL (08:29)
[2019-12-14] MEDS: CALCIUM CARBONATE (OSCAL) 500 MG TABLET 1000 MG PO (08:29)
[2019-12-14] MEDS: MUPIROCIN 2% OINT 22 GM TUBE 1 APPLIC TOPICAL (08:35)
[2019-12-14] MEDS: ACETAMINOPHEN 325 MG TABLET 650 MG PO (09:44)
[2019-12-14 12:13] LABS: Glucose Point of Care 77 (65-105)
[2019-12-14 14:00] VITALS: BP 102/50; PULSE 80; RESP 20; TEMP 36.1; O2SAT 98
[2019-12-14 17:07] LABS: Glucose Point of Care 179 (65-105)
[2019-12-14] MEDS: INSULIN GLARGINE (LANTUS) 1,000 UNITS/10 ML VIAL 44 UNITS SUB-Q (21:03)
[2019-12-14 21:18] LABS: Glucose Point of Care 348 (65-105)
[2019-12-14 22:00] VITALS: BP 112/57; PULSE 67; RESP 18; TEMP 36.2; O2SAT 97
[2019-12-15] MEDS: CEPHALEXIN 500 MG CAPSULE PO ×3 (00:12→12:07)
[2019-12-15 04:43] LABS: Basophils Percent Auto 0.1 % (0.2-1.2); Eosinophils Percent Auto 0.1 % (0-4.4); Hematocrit 37.4 % (42.0-52.0); Hemoglobin 12.6 g/dL (14.0-18.0); Immature Granulocyte Percent A 0.7 % (0-0.5); Lymphocytes Absolute Auto 1.12 K/mm3 (0.9-3.2); Lymphocytes Percent Auto 8.1 % (18.3-44.2); Mean Corpuscular HGB Conc 33.7 g/dl (32-36); Mean Corpuscular Hemoglobin 31.2 pg (26-34); Mean Corpuscular Volume 92.6 fl (80-100); Mean Platelet Volume 10.1 fl (7.4-10.4); Monocytes Absolute Auto 0.6 K/mm3 (0.1-0.6); Neutrophils Absolute Auto 12.1 K/mm3 (1.3-6.7); Platelet Count Result 186 k/mm3 (150-375); Red Blood Count 4.04 M/mm3 (4.6-6.20); Red Cell Distribution Width 13.2 % (11.5-14.5); White Blood Count 13.9 K/mm3 (4.5-10.0)
[2019-12-15 04:59] LABS: Anion Gap 7 mmol/L (8-16); Blood Urea Nitrogen 23 mg/dL (9-20); Calcium 9.1 mg/dL (8.4-10.2); Carbon Dioxide 24 mmol/L (22-30); Chloride 101 mmol/L (98-107); Estimated CRCL calculation 80 ml/min; Estimated Glomerular Filt Rate > 60; Glucose 170 mg/dL (75-110); Potassium 4.4 mmol/L (3.4-5.0); Sodium 132 mmol/L (137-145)
[2019-12-15 06:00] VITALS: BP 132/70; PULSE 62; RESP 18; TEMP 36.1; O2SAT 100
[2019-12-15 06:45] LABS: Glucose Point of Care 145 (65-105)
[2019-12-15] MEDS: lisinopriL 20 MG TABLET 60 MG PO (08:45)
[2019-12-15] MEDS: CHOLECALCIFEROL 1,000 UNITS TABLET 5000 UNITS PO (08:45)
[2019-12-15] MEDS: CALCIUM CARBONATE (OSCAL) 500 MG TABLET 1000 MG PO (08:45)
[2019-12-15] MEDS: DEXAMETHASONE 2 MG TABLET PO (08:45)
[2019-12-15 08:46] VITALS: PULSE 62
[2019-12-15] MEDS: amLODIPine BESYLATE 5 MG TABLET PO (08:46)
[2019-12-15] MEDS: metFORMIN HCL 500 MG TABLET 1000 MG PO (08:46)
[2019-12-15] MEDS: ATORVASTATIN 20 MG TABLET PO (08:46)
[2019-12-15] MEDS: METOPROLOL TARTRATE 50 MG TAB PO (08:46)
[2019-12-15] MEDS: allopurinoL 300 MG TABLET PO (08:47)
[2019-12-15] MEDS: POTASSIUM CHLORIDE 10 MEQ TABLET.ER PO (08:47)
[2019-12-15] MEDS: polyethylene glycoL 3350 17 GM POWD.PACK PO (08:47)
[2019-12-15] MEDS: ACETAMINOPHEN 325 MG TABLET 650 MG PO (08:47)
[2019-12-15] MEDS: TAMSULOSIN HCL 0.4 MG CAPSULE PO (08:47)
[2019-12-15] MEDS: LIDOCAINE 5% PATCH 1 PATCH TOPICAL (08:48)
[2019-12-15 12:33] LABS: Glucose Point of Care 131 (65-105)
--- NOTE | 2019-12-15 13:34 | WPDNEURORHBP ---
Subjective Date/time seen: 12/15/19 13:34 Interval history: This 74-year-old gentleman is here status post cervical surgery for spinal cord compression he has done remarkably well and progressed and ready to be discharged labs were reviewed is relatively higher white count related to the dexamethasone he is on and that has to be tapered according to the schedule by his treating neurosurgeon with whom he has the appointment coming up his quite eager to go home with the family member present at the time of this interview she denies any headache nausea vomiting fevers chills sore throat and overall both upper lower extremities much better than he before he came in Review of Systems Review of Systems: All systems reviewed & are unremarkable except as noted in HPI and below Functional Status Ambulation Ability Ability to Ambulate 10 Feet: Independent Ability to Ambulate 50 Feet With 2 Turns: Independent Ability to Ambulate 150 Feet: Independent Ambulation Assistive Devices: Walker, Wheeled Transfers Ability Ability to Transfer In/Out of Chair: Independent Exam Const: General: comfortable and no acute distress HENMT: General nose exam: Normal nares present Mouth: Yes moist mucous membranes Eyes: General: appearance normal, both eyes and all related structures Neck: Neck: supple and no JVD Other: the incision on the right side of the neck is much better and relatively much swollen and no redness is noted Resp: Effort & Inspection: normal respiratory effort Auscultation: clear to auscultation bilaterally Cardio: Rate: regular rate Rhythm: regular rhythm GI: GI Palp: Yes Soft to palpation Auscultation: normal bowel sounds Skin: General skin exam: normal color and no rashes or lesions noted Neuro: Other: patient remains awake alert well oriented it has much better attitude and demeanor and smiling with improvement he has had and his weakness of lower extremities in the upper extremities have significantly improved Extrem: General: normal to inspection Psych: Mental Status: mental status grossly normal Objective Data Vital Signs Vital Signs: Vital Signs - 24 hr 12/14/19 14:00 12/14/19 22:00 12/15/19 06:00 Temperature 36.1 C L 36.2 C L 36.1 C L Pulse Rate 80 67 62 Respiratory Rate 20 18 18 Blood Pressure 102/50 L 112/57 L 132/70 Pulse Oximetry 98 97 100 12/15/19 08:46 Temperature Pulse Rate 62 Respiratory Rate Blood Pressure Pulse Oximetry Intake/Output Intake/Output: Intake & Output 12/12/19 12/13/19 12/14/19 12/15/19 23:59 23:59 23:59 23:59 Intake Total 720 840 720 240 Balance 720 840 720 240 Meds/Results Medications: Active Medications Generic Name Dose Route Start Last Admin Trade Name Freq PRN Reason Stop Dose Admin Acetaminophen 650 mg 12/07/19 16:43 12/15/19 08:47 Tylenol Tablet PO 650 mg Q4H PRN Administration Mild Pain (1-3) Hydrocodone Bitart/Acetaminophen 5 - 325 tab 12/07/19 16:43 [place] 5-325 Mg PO Q8H PRN Pain (Scale Score 7-10) Allopurinol 300 mg 12/08/19 09:00 12/15/19 08:47 Zyloprim PO 300 mg DAILY KIA Administration Amlodipine Besylate 5 mg 12/07/19 17:00 12/15/19 08:46 Norvasc PO 5 mg BID KIA Administration Atorvastatin Calcium 20 mg 12/08/19 09:00 12/15/19 08:46 Lipitor PO 20 mg DAILY KIA Administration Calcium Carbonate 1,000 mg 12/08/19 09:00 12/15/19 08:45 Oscal 500 Mg PO 01/07/20 09:01 1,000 mg DAILY KIA Administration Cephalexin HCl 500 mg 12/07/19 18:00 12/15/19 12:07 Keflex Capsule PO 500 mg Q6HR KIA Administration Dexamethasone 2 mg 12/07/19 17:00 12/15/19 08:45 Dexamethasone Po PO 2 mg BIDWM KIA Administration Dextrose 12.5 gm 12/07/19 16:35 Dextrose 50% Syringe IV PUSH PRN PRN Hypoglycemia Protocol Diltiazem HCl 120 mg 12/08/19 09:00 12/15/19 08:46 Cardizem Cd PO 01/07/20 09:01 120 mg DAILY KIA Administration Gluca
--- NOTE | 2019-12-19 10:48 | PM.DS ---
DS: Admitting Diagnosis Admitting Diagnosis Admitting Diagnosis: cervical myelopathy DS: Discharge Diagnosis Discharge Diagnosis (1) Carpal tunnel syndrome: Code(s): G56.00 - Carpal tunnel syndrome, unspecified upper limb Status: Acute (2) Diabetes mellitus with neuropathy: Code(s): E11.40 - Type 2 diabetes mellitus with diabetic neuropathy, unspecified Status: Acute (3) Chronic low back pain: Code(s): M54.5 - Low back pain; G89.29 - Other chronic pain Status: Acute (4) Status post cervical spinal fusion: Code(s): Z98.1 - Arthrodesis status Status: Acute (5) Cervical myelopathy: Code(s): G95.9 - Disease of spinal cord, unspecified Status: Acute DS: Summary Hospital Course Reason for hospitalization: cervical myelopathywith spinal cord dysfunction in addition to DM,hypertension,,DDD,and CTS Hospital Course: involved in PT did well ,with high BS due to dexamethasone ,able to walk with wheeled walker independently,exam remained stable, eating independent, oral hygiene independent, toileting independent, bathing independent, upper body dressing independent, lower body dressing independent, footwear independent, roling in bed independent,sit to lying independent, lying to sitting independently, [id number] is independent, chair transfer independently, toilet transfer independent, car transfer independent, walking 10ft independent, working 50ft with turns independent, walking 150ft independent, walking 10ft on uneven surfaces independent, curbor step independent,12 steps independently, picking up objects independent, at the time of discharge patient had no falls and injuries during the entire hospitalization and went home with home health Status at Discharge Cognitive/behavioral status at discharge: normal Time Spent with Patient Time attestation: Total time spent providing and/or coordinating discharge services: Exam Narrative: Exam Narrative: examination revealed a week ago cooperative in no obvious acute distress head normocephalic with no cranial bruits ear nose throat examination normal the incision on the right side of the neck was much better though it was mildly swollen and red respiration clear with no rhonchi crepitations abdomen soft with no organomegaly heart regular with no murmur lungs clearn urologically awake alert cooperative in no obvious acute distress his speech nor dysphasic no dysarthric cranial examination normal motor and sensory exam normal reflexes symmetrical plantars downgoing DS: Data Data Completed and Pending Pending studies at discharge: last CBC revealed WBC 13.9 with hemoglobin 12.6 platelet count of 186 electrolytes normal with sodium 132 P 123 glucose 170 Discharge Plan Discharge Attending physician on discharge: Ever Venegas Discharging Clinician: Erasto Heck Anticipated Discharge Date/Time: 12/15/19 12:44 Patient Disposition: Home Health Service Activity: may shower, no driving and other - see discharge instructions Diet: diabetic Discharge Instructions: Per Care Coordination: Home Health was arranged through [facility]. [facility] can be contacted at [phone]. Please fax discharge instructions to [employer] at [phone]. DO NOT LIFT GREATER THAN 10 POUNDS UNTIL CLEARED BY SURGEON CALL OFFICE IF YOU HAVE ANY PROBLEMS WITH INCISION SUCH INCREASED REDNESS OR SWELLING Patient Instructions: Antibiotic Form, Pain Management in Older Adults (DC) Stand Alone Forms: General Discharge Information Follow-up/Referrals: Bhaskar Lamb MD [Other] (Please call the office for follow up appt after d/c from [facility]) PCP [Other] Discharge Medications: New potassium chloride [K-Tab] 10 mEq Tablet Extended Release 10 meq PO DAILY Qty: 30 RF: 0 Continued cholecalciferol (vitamin D3) 125 mcg (5,000 unit) Tablet 125 mcg PO DAILY RF: 0 acetaminophen 325 mg Tablet 650 mg PO
== END 2019-12-15 14:15 | disposition home health service (06) | DRG 560 ==
PROVIDERS: Admitting Provider Psychiatry & Neurology Neurology; Visit Provider Psychiatry & Neurology Neurology
DX: Z47.89 Encounter for other orthopedic aftercare (principal); M50.01 Cervical disc disorder with myelopathy, high cervical region; D62 Acute posthemorrhagic anemia; D72.828 Other elevated white blood cell count; E78.5 Hyperlipidemia, unspecified; E11.42 Type 2 diabetes mellitus with diabetic polyneuropathy; G56.00 Carpal tunnel syndrome, unspecified upper limb; I10 Essential (primary) hypertension; M51.36 Other intervertebral disc degeneration, lumbar region; M79.89 Other specified soft tissue disorders; M10.9 Gout, unspecified; N40.0 Benign prostatic hyperplasia without lower urinary tract symptoms; R26.9 Unspecified abnormalities of gait and mobility; Z79.4 Long term (current) use of insulin; Z87.891 Personal history of nicotine dependence; Z98.1 Arthrodesis status; G89.29 Other chronic pain; T38.0X5D Adverse effect of glucocorticoids and synthetic analogues, subsequent encounter
CPT/HCPCS: 36415; 80048; 83036; 85025; 97110; 97116; 97161; 97166; 97530; 97535; A9270; J1815; J8540

== ENCOUNTER 2020-01-09 17:59 | IRF | payer MEDICARE, SELFPAY ==
[2020-01-09 17:30] VITALS: BP 129/66; PULSE 92; RESP 20; TEMP 36.4; O2SAT 96; BMI 28.0
--- NOTE | 2020-01-09 17:30 | ADMGEN ---
This patient, Rob Quiros, was admitted to [facility] Room 230-02. Patient/family oriented to hospital policies and general routines including ID bracelet, bed and alarms, visiting hours, pain management, procedures, bathroom and other care routines, personal items, smoking policy, room service/diet, and visiting hours. Valuables list has been completed. Information on how to activate the Rapid Response Team has been discussed. Patient/Family are encouraged to report perceived risks to care and to ask questions if they do not understand what they are told or what they should do.
[2020-01-09 17:56] LABS: Glucose Point of Care 158 (65-105)
[2020-01-09 18:25] VITALS: BMI 28.0
[2020-01-09] MEDS: HYDROcodone/acetaminophen (*CRX) 5-325 MG TABLET PO (20:27)
[2020-01-09 20:41] VITALS: BP 144/83; PULSE 76; RESP 18; TEMP 36.3; O2SAT 100
[2020-01-09] MEDS: dilTIAZem HCL 60 MG TABLET 120 MG PO (21:32)
[2020-01-09] MEDS: amLODIPine BESYLATE 5 MG TABLET PO (21:32)
[2020-01-09] MEDS: CEPHALEXIN 500 MG CAPSULE PO (21:32)
[2020-01-09] MEDS: INSULIN GLARGINE (*BKC) 100 UNITS/ML 44 UNITS SUB-Q (21:33)
[2020-01-09 21:41] LABS: Glucose Point of Care 282 (65-105)
[2020-01-10] MEDS: HYDROcodone/acetaminophen (*CRX) 5-325 MG TABLET PO ×3 (03:05→21:47)
[2020-01-10] MEDS: CEPHALEXIN 500 MG CAPSULE PO ×4 (03:06→20:41)
[2020-01-10 05:10] LABS: Basophils Absolute Auto 0.1 K/mm3 (0.0-0.1); Basophils Percent Auto 0.5 % (0.2-1.2); Eosinophils Absolute Auto 0.1 K/mm3 (0-0.3); Eosinophils Percent Auto 1.4 % (0-4.4); Hematocrit 33.8 % (42.0-52.0); Hemoglobin 11.1 g/dL (14.0-18.0); Immature Granulocyte Absolute 0.14 K/mm3 (0.00-0.031); Immature Granulocyte Percent A 1.5 % (0-0.5); Lymphocytes Percent Auto 26.8 % (18.3-44.2); Mean Corpuscular HGB Conc 32.8 g/dl (32-36); Mean Corpuscular Hemoglobin 30.3 pg (26-34); Mean Corpuscular Volume 92.3 fl (80-100); Mean Platelet Volume 9.4 fl (7.4-10.4); Monocytes Percent Auto 10.6 % (2.6-8.5); Neutrophils Absolute Auto 5.5 K/mm3 (1.3-6.7); Neutrophils Percent Auto 59.2 % (45.5-73.1); Platelet Count Result 342 k/mm3 (150-375); Red Blood Count 3.66 M/mm3 (4.6-6.20); Red Cell Distribution Width 13.9 % (11.5-14.5); White Blood Count 9.3 K/mm3 (4.5-10.0)
[2020-01-10 05:23] LABS: Hemoglobin A1C 7.4 % (<5.7)
[2020-01-10 05:25] LABS: Anion Gap 5 mmol/L (8-16); Blood Urea Nitrogen 13 mg/dL (9-20); Calcium 9.8 mg/dL (8.4-10.2); Carbon Dioxide 30 mmol/L (22-30); Chloride 99 mmol/L (98-107); Estimated CRCL calculation 71 ml/min; Estimated Glomerular Filt Rate > 60; Glucose 91 mg/dL (75-110); Potassium 3.8 mmol/L (3.4-5.0); Sodium 134 mmol/L (137-145)
[2020-01-10 05:46] VITALS: BP 119/78; PULSE 83; RESP 18; TEMP 36.1; O2SAT 95
[2020-01-10 06:41] LABS: Glucose Point of Care 67 (65-105)
[2020-01-10] MEDS: allopurinoL 300 MG TABLET PO (09:17)
[2020-01-10] MEDS: metFORMIN HCL 500 MG TABLET 1000 MG PO ×2 (09:17→17:39)
[2020-01-10] MEDS: CHOLECALCIFEROL 1,000 UNITS TABLET 5000 UNITS PO (09:18)
[2020-01-10] MEDS: amLODIPine BESYLATE 5 MG TABLET PO ×2 (09:18→20:41)
[2020-01-10] MEDS: ATORVASTATIN 20 MG TABLET PO (09:18)
[2020-01-10] MEDS: CALCIUM CARBONATE (OSCAL) 500 MG TABLET 1000 MG PO (09:18)
[2020-01-10 09:19] VITALS: PULSE 83
[2020-01-10] MEDS: lisinopriL 20 MG TABLET 60 MG PO (09:19)
[2020-01-10] MEDS: polyethylene glycoL 3350 17 GM POWD.PACK PO (09:19)
[2020-01-10] MEDS: METOPROLOL TARTRATE 50 MG TAB PO (09:19)
[2020-01-10] MEDS: LIDOCAINE 5% PATCH 1 PATCH TOPICAL (09:19)
[2020-01-10] MEDS: POTASSIUM CHLORIDE 10 MEQ TABLET.ER PO (09:19)
[2020-01-10] MEDS: TAMSULOSIN HCL 0.4 MG CAPSULE PO (09:20)
--- NOTE | 2020-01-10 10:30 | WPDREHABHP ---
H&P: HPI History of Present Illness Date/Time: 01/10/20 11:47 Chief complaint: spinal cord dysfunction Narrative: Rob Quiros is a 74 year old male HISTORY OF PRESENT ILLNESS: The patient's primary rehab impairment category is 0 5 - spinal cord dysfunction /nontraumatic. The etiologic diagnosis is Really accumulating wound seroma secondary to CSF leak I saw this patient [id number] on January 10, 2020 at 10:00 a.m. The patient is a 74-year-old right-handed gentleman who is known to me from his previous rehab hospitalization when he came [place] after having had cervical surgery performed. He has a past medical history of diabetes mellitus, hypertension, back pain and multiple falls and status post C4-C5 anterior cervical diskectomy and fusion with plate fixation and December 04, 2019 ) there was a tiny and durotomy for which a drug and patch was placed (, he presented to [facility] on December 27, 2019 with accumulating wound seroma. Of note the patient discharged to the rehab center [facility] after a cervical surgery and the patient recovered well and went home nearly completely independent. Even to a three-week follow-up appointment and presented with significant subcutaneous kiara-incisional swelling. This was aspirated in the office by treating neurosurgeon and was noted to have a xanthochromic fluid. The fluid reaccumulated a few days later and the patient was told to come in for possible drain placement. Neurosurgery was consulted for the new seroma and the patient was admitted for further evaluation treatment. Neurological examination revealed reaccumulation of the fluid to surgical side secondary to CSF leak. December 28, 2019 the patient underwent an L3 laminectomy for subarachnoid drain placement. Patient was placed on IV Ancef and IV vancomycin. The drain was discontinued January 07, 2020. Since the drain was discontinue there has been no reaccumulation of the fluid. Postoperatively the patient has experienced acute blood-loss anemia, hypertension, and acute postoperative pain. Acute postoperative pain managed with oral and 6. Hypertension is controlled with amlodipine did his am lisinopril and metoprolol. The patient will be discharged to rehab on oral cephalexin and is to complete a 10 day course. [place] J collar cervical brace is place. He will not be discharged to rehab on chemical prophylaxis for DVT given his recent surgery. We will instead use SCDs Therapy was initiated at the acute care facility and the patient transferred to us from [facility] on January 09, 2020 FALLS OR SURGERIES: The patient has had major surgeries in the 100 days prior to admission. They had falls in the past year. They had falls with injury in the past year. and had surgery twice in the recent few weeks PAST MEDICAL HISTORY: C3-C5 cord edema and compression with cervical myelopathy, back pain, carpal tunnel syndrome right more than left, diabetes mellitus with diabetic neuropathy, neuropathy bilateral feet hyperlipidemia hypertension age distance he has osteoarthritis gout spinal stenosis, degenerative arthritis complete tear of the right rotator cuff, right shoulder impingement, traumatic rupture of biceps tendon, right-sided weakness, vitamin B12 deficiency, multiple falls since in September of 2019 PAST SURGICAL HISTORY: C4-C5 ACDF with plate fixation on December 04, 2019. Right knee arthroplasty, still plate in the left leg, tonsillectomy, and abdominal surgery. SOCIAL HISTORY: Patient is . The patient lives with his son in a multilevel home with greater than 4 steps to enter. He was completely independent and with ADLs and used wheel walker for mobility. Former smoker quit in 1970, no alcohol or drug use FAMILY HISTORY: PRIOR LEVEL OF FUNCTION: Eating was INDEPENDENT Oral Care was INDEPENDENT Toileting Hygiene was INDEPENDENT Shower/Bathing was INDEPENDENT Upper Body Dressing was INDEPE
[2020-01-10 11:59] LABS: Glucose Point of Care 131 (65-105)
[2020-01-10 14:00] VITALS: BP 118/55; PULSE 86; RESP 20; TEMP 36; O2SAT 99
[2020-01-10 14:04] VITALS: BMI 28.0
[2020-01-10 17:03] LABS: Glucose Point of Care 135 (65-105)
[2020-01-10] MEDS: INSULIN ASPART (*BKC) 100 UNITS/ML SUB-Q (17:37)
[2020-01-10] MEDS: dilTIAZem HCL 60 MG TABLET 120 MG PO (20:41)
[2020-01-10] MEDS: INSULIN GLARGINE (*BKC) 100 UNITS/ML 44 UNITS SUB-Q (20:57)
[2020-01-10 21:15] LABS: Glucose Point of Care 145 (65-105)
[2020-01-10 21:21] VITALS: BP 105/65; PULSE 89; RESP 18; TEMP 36.2; O2SAT 93
--- NOTE | 2020-01-10 22:00 | PC.NURSE ---
Dr Venegas notified pt HS BS only 145, new order to only give 35 units of Lantus at HS
[2020-01-11] MEDS: CEPHALEXIN 500 MG CAPSULE PO ×4 (03:34→19:53)
[2020-01-11 04:48] LABS: Potassium 4.1 mmol/L (3.4-5.0)
[2020-01-11 05:22] VITALS: BP 118/59; PULSE 73; RESP 18; TEMP 36.1; O2SAT 92
[2020-01-11 06:18] LABS: Glucose Point of Care 66 (65-105)
[2020-01-11] MEDS: HYDROcodone/acetaminophen (*CRX) 5-325 MG TABLET PO ×3 (06:49→19:49)
[2020-01-11 06:56] LABS: Glucose Point of Care 90 (65-105)
[2020-01-11] MEDS: CALCIUM CARBONATE (OSCAL) 500 MG TABLET 1000 MG PO (09:25)
[2020-01-11] MEDS: LIDOCAINE 5% PATCH 1 PATCH TOPICAL (09:25)
[2020-01-11 09:26] VITALS: PULSE 73
[2020-01-11] MEDS: METOPROLOL TARTRATE 50 MG TAB PO (09:26)
[2020-01-11] MEDS: TAMSULOSIN HCL 0.4 MG CAPSULE PO (09:26)
[2020-01-11] MEDS: CHOLECALCIFEROL 1,000 UNITS TABLET 5000 UNITS PO (09:26)
[2020-01-11] MEDS: amLODIPine BESYLATE 5 MG TABLET PO ×2 (09:26→19:52)
[2020-01-11] MEDS: ATORVASTATIN 20 MG TABLET PO (09:26)
[2020-01-11] MEDS: POTASSIUM CHLORIDE 10 MEQ TABLET.ER PO (09:26)
[2020-01-11] MEDS: lisinopriL 20 MG TABLET 60 MG PO (09:26)
[2020-01-11] MEDS: polyethylene glycoL 3350 17 GM POWD.PACK PO (09:27)
[2020-01-11] MEDS: allopurinoL 300 MG TABLET PO (09:27)
[2020-01-11] MEDS: metFORMIN HCL 500 MG TABLET 1000 MG PO ×2 (09:27→16:55)
--- NOTE | 2020-01-11 11:05 | WPDNEURORHBP ---
Subjective Date/time seen: 01/11/20 11:05 Interval history: this 74-year-old gentleman is here with a primary diagnosis of spinal cord dysfunction / cervical myelopathy /status post removal of the seroma from the right side of the neck and also placement of a drain status post in his lumbar area for the CSF leak which it seems like has stopped his diabetes is not well controlled so we have to adjust the insulin otherwise he denies any headache nausea vomiting chest pain shortness of breath fever chills sore throat Review of Systems Review of Systems: All systems reviewed & are unremarkable except as noted in HPI and below Functional Status Ambulation Ability Ability to Ambulate 10 Feet: Standby Assistance Ability to Ambulate 50 Feet With 2 Turns: Contact Guard Ability to Ambulate 150 Feet: Standby Assistance Ambulation Assistive Devices: Walker, Wheeled Transfers Ability Ability to Transfer In/Out of Chair: Contact Guard Exam Const: General: comfortable and no acute distress HENMT: General nose exam: Normal nares present Mouth: Yes moist mucous membranes Eyes: General: appearance normal, both eyes and all related structures Neck: Neck: supple and no JVD Other: there is no swelling of the anterior neck as he has had prior to having had the CSF leak closed Resp: Effort & Inspection: normal respiratory effort Auscultation: clear to auscultation bilaterally Cardio: Rate: regular rate Rhythm: regular rhythm GI: GI Palp: Yes Soft to palpation Auscultation: normal bowel sounds Back/Spine/Pelvis: Other: the incision of the lower back is clean Skin: General skin exam: normal color and no rashes or lesions noted Neuro: Other: patient is awake alert and well oriented does have evidence of sensory deficit in the hands primarily combined due to carpal tunnel syndrome and also his cervical myelopathy the weakness of the lower extremities in the upper extremities continues to improve Extrem: General: normal to inspection Psych: Mental Status: mental status grossly normal Objective Data Vital Signs Vital Signs: Vital Signs - 24 hr 01/10/20 14:00 01/10/20 21:21 01/11/20 05:22 Temperature 36.0 C L 36.2 C L 36.1 C L Pulse Rate 86 89 73 Respiratory Rate 20 18 18 Blood Pressure 118/55 L 105/65 118/59 L Pulse Oximetry 99 93 92 01/11/20 09:26 Temperature Pulse Rate 73 Respiratory Rate Blood Pressure Pulse Oximetry Intake/Output Intake/Output: Intake & Output 01/08/20 01/09/20 01/10/20 01/11/20 23:59 23:59 23:59 23:59 Intake Total 240 720 480 Balance 240 720 480 Meds/Results Medications: Active Medications Generic Name Dose Route Start Last Admin Trade Name Freq PRN Reason Stop Dose Admin Hydrocodone Bitart/Acetaminophen 1 - 2 tab 01/09/20 18:40 01/11/20 06:49 [place] 5-325 Mg PO 2 tab Q4H PRN Administration Pain Rated 4-6 Allopurinol 300 mg 01/10/20 09:00 01/11/20 09:27 Zyloprim PO 300 mg DAILY KIA Administration Amlodipine Besylate 5 mg 01/09/20 21:00 01/11/20 09:26 Norvasc PO 5 mg Q12HR KIA Administration Atorvastatin Calcium 20 mg 01/10/20 09:00 01/11/20 09:26 Lipitor PO 20 mg DAILY KIA Administration Calcium Carbonate 1,000 mg 01/10/20 09:00 01/11/20 09:25 Oscal 500 Mg PO 02/09/20 09:01 1,000 mg DAILY KIA Administration Cephalexin HCl 500 mg 01/09/20 21:00 01/11/20 09:38 Keflex Capsule PO 01/19/20 21:01 500 mg Q6H KIA Administration Dextrose 12.5 gm 01/09/20 19:19 Dextrose 50% Syringe IV PUSH PRN PRN Hypoglycemia Protocol Diazepam 5 mg 01/10/20 00:00 Valium Po PO Q6HR PRN Spasms Diltiazem HCl 120 mg 01/09/20 21:00 01/10/20 20:41 Cardizem Tab PO 02/08/20 21:01 120 mg HS KIA Administration Glucagon 1 mg 01/09/20 19:19 Glucagon For Inj IM PRN PRN Hypoglycemia Protocol Glucose 15 gm 01/09/20 19:19 Glutose 15 PO PRN PRN Hyp
[2020-01-11 11:51] LABS: Glucose Point of Care 158 (65-105)
--- NOTE | 2020-01-11 13:21 | RPD ---
INDIVIDUALIZED PLAN OF CARE FOR Rob Quiros Brief Synthesis of Pre-Admission Screen, Post-Admission Evaluation and Therapy Evaluations: The patient presents to rehab with non-traumatic spinal cord dysfunction with reaccumulating wound seroma secondary to CSF leak status post L3 laminectomy and drain placement. Comorbidities include subarachnoid drain placement, anterior cervical diskectomy with interbody fusion and plate stabilization for cervical stenosis, hypertension, insulin-dependent diabetes mellitus, diabetic neuropathy, dyslipidemia, gout, weakness, acute postoperative pain, benign prostatic hypertrophy, right leg and foot swelling, cervical myelopathy, ataxic gait, constipation, thrombocytosis, and hypokalemia. The complexity of the patient's medical management, nursing, and therapy needs require an inpatient rehab hospital stay with a physician-led interdisciplinary team approach. The patient?s needs will be best met in an intensive program vs. at a lower level of care. The patient requires physician services for medical oversight, management of post-op complications in setting of present comorbidities, and pain management. The patient requires nursing services for anticoagulation therapy, diabetes training, DVT prophylactics, infection protection, medication management and education, pressure relief, and wound care. Deficits include:ADLs, Balance, Endurance, Family Training/Education, Mobility, Pain Management, ROM, Safety, Strength, and Transfers. Refrigerator Tester/Case Management for: Discharge Planning and Patient/Family Counseling Physical Therapy: 5 days per week for 90 minutes. Treatments may include: Therapeutic Exercise, Gait Training, Neuromuscular Re-education, Transfer Training, Community Reintegration, Bed Mobility, Patient/Family Education, Wheelchair Mobility Group Therapy/Concurrent Therapy Rationales: -Improve attention span during functional activities in a distracted environment. -Enhance problem solving and/or adequate judgment skills during functional activities in a distracted environment. -Promote increased safety awareness in a distracted environment to reduce fall risk with functional tasks, transfers, and ambulation to allow a more safe, self-sufficient return to the home environment. -Improve dynamic balance skills to promote safety and independence with functional activities in a distracted environment for maximum gain. Occupational Therapy: 5 days per week for 90 minutes. Treatments may include: Therapeutic Exercise, Therapeutic Activity, Cognitive Training, Self-Care Transfer Training, Community Reintegration, Home Management, Patient/Family Education, Wheelchair Mobility Training, Energy Conservation Training Group Therapy/Concurrent Therapy Rationales: -Allow therapist to observe and teach generalization and carry-over of skills learned in individual therapy. -Enhance problem solving and sequencing skills during therapeutic activities in a distracted environment. -Promote increased safety awareness in a realistic setting to reduce fall risk with functional tasks due to visual and verbal distractions. -Increase functional level with ADLs, ADL transfers and use of adaptive equipment through therapeutic activities with others while promoting safety to allow a more safe, self-sufficient return home. Medical Prognosis: Good Anticipated Length of Stay: 10 days Rehab Goals: Eating Goal: 06-Independent Oral Hygiene Goal: 06-Independent Toileting Hygiene Goal: 06-Independent Shower/Bathe Self Goal: 04-Supervision or Touching Assistance Upper Body Dressing Goal: 06-Independent Lower Body Dressing Goal: 06-Independent Putting On/Taking Off Footwear Goal: 06-Independent Rolling Left and Right Goal: 06-Independent Sit to Lying Goal: 06-Independent Lying to Sitting on Side of Bed Goal: 06-Independent Sit to Stand Goal: 06-Independent Chair/[id number] Transfer Goal: 06-Independent Toilet Transfer Goal: 06-Independent Car Tr
[2020-01-11 14:00] VITALS: BP 93/53; PULSE 82; RESP 16; TEMP 36.1; O2SAT 95
[2020-01-11 18:18] LABS: Glucose Point of Care 106 (65-105)
[2020-01-11] MEDS: dilTIAZem HCL 60 MG TABLET 120 MG PO (19:53)
[2020-01-11] MEDS: INSULIN GLARGINE (*BKC) 100 UNITS/ML 25 UNITS SUB-Q (20:06)
[2020-01-11 21:38] LABS: Glucose Point of Care 188 (65-105)
[2020-01-11 22:00] VITALS: BP 107/62; PULSE 101; RESP 18; TEMP 36.5; O2SAT 94
[2020-01-12] MEDS: HYDROcodone/acetaminophen (*CRX) 5-325 MG TABLET PO ×4 (01:01→22:14)
[2020-01-12] MEDS: CEPHALEXIN 500 MG CAPSULE PO ×4 (03:11→20:33)
[2020-01-12 06:00] VITALS: BP 146/63; PULSE 85; RESP 18; TEMP 36.7; O2SAT 96
[2020-01-12 06:47] LABS: Glucose Point of Care 70 (65-105)
[2020-01-12 07:07] LABS: Glucose Point of Care 88 (65-105)
[2020-01-12] MEDS: metFORMIN HCL 500 MG TABLET 1000 MG PO ×2 (07:38→16:56)
[2020-01-12] MEDS: CALCIUM CARBONATE (OSCAL) 500 MG TABLET 1000 MG PO (09:19)
[2020-01-12] MEDS: ATORVASTATIN 20 MG TABLET PO (09:19)
[2020-01-12] MEDS: allopurinoL 300 MG TABLET PO (09:20)
[2020-01-12] MEDS: CHOLECALCIFEROL 1,000 UNITS TABLET 5000 UNITS PO (09:20)
[2020-01-12] MEDS: amLODIPine BESYLATE 5 MG TABLET PO ×2 (09:20→20:34)
[2020-01-12] MEDS: lisinopriL 20 MG TABLET 60 MG PO (09:21)
[2020-01-12] MEDS: TAMSULOSIN HCL 0.4 MG CAPSULE PO (09:21)
[2020-01-12] MEDS: LIDOCAINE 5% PATCH 1 PATCH TOPICAL (09:21)
[2020-01-12] MEDS: POTASSIUM CHLORIDE 10 MEQ TABLET.ER PO (09:21)
[2020-01-12] MEDS: polyethylene glycoL 3350 17 GM POWD.PACK PO (09:21)
[2020-01-12 09:22] VITALS: PULSE 80
[2020-01-12] MEDS: METOPROLOL TARTRATE 50 MG TAB PO (09:22)
[2020-01-12 12:08] LABS: Glucose Point of Care 160 (65-105)
[2020-01-12] MEDS: INSULIN ASPART (*BKC) 100 UNITS/ML SUB-Q (13:31)
[2020-01-12 14:00] VITALS: BP 117/66; PULSE 78; RESP 20; TEMP 36.2; O2SAT 95
[2020-01-12 17:51] LABS: Glucose Point of Care 140 (65-105)
[2020-01-12] MEDS: INSULIN GLARGINE (*BKC) 100 UNITS/ML 20 UNITS SUB-Q (20:36)
[2020-01-12] MEDS: dilTIAZem HCL 60 MG TABLET 120 MG PO (20:36)
[2020-01-12 20:53] LABS: Glucose Point of Care 188 (65-105)
[2020-01-12 22:00] VITALS: BP 148/60; PULSE 94; RESP 18; TEMP 37.1; O2SAT 96
[2020-01-13] MEDS: HYDROcodone/acetaminophen (*CRX) 5-325 MG TABLET PO ×4 (03:30→23:43)
[2020-01-13] MEDS: CEPHALEXIN 500 MG CAPSULE PO ×4 (03:33→20:26)
[2020-01-13 04:46] LABS: Potassium 4.6 mmol/L (3.4-5.0)
[2020-01-13 06:00] VITALS: BP 137/61; PULSE 79; RESP 18; TEMP 35.9; O2SAT 96
[2020-01-13] MEDS: metFORMIN HCL 500 MG TABLET 1000 MG PO ×2 (06:32→17:15)
[2020-01-13 06:47] LABS: Glucose Point of Care 119 (65-105)
[2020-01-13] MEDS: ATORVASTATIN 20 MG TABLET PO (09:41)
[2020-01-13] MEDS: allopurinoL 300 MG TABLET PO (09:41)
[2020-01-13] MEDS: CALCIUM CARBONATE (OSCAL) 500 MG TABLET 1000 MG PO (09:42)
[2020-01-13] MEDS: amLODIPine BESYLATE 5 MG TABLET PO ×2 (09:42→20:26)
[2020-01-13] MEDS: CHOLECALCIFEROL 1,000 UNITS TABLET 5000 UNITS PO (09:42)
[2020-01-13] MEDS: lisinopriL 20 MG TABLET 60 MG PO (09:43)
[2020-01-13] MEDS: polyethylene glycoL 3350 17 GM POWD.PACK PO (09:43)
[2020-01-13] MEDS: POTASSIUM CHLORIDE 10 MEQ TABLET.ER PO (09:43)
[2020-01-13] MEDS: LIDOCAINE 5% PATCH 1 PATCH TOPICAL (09:43)
[2020-01-13] MEDS: TAMSULOSIN HCL 0.4 MG CAPSULE PO (09:43)
[2020-01-13 09:44] VITALS: PULSE 69
[2020-01-13] MEDS: METOPROLOL TARTRATE 50 MG TAB PO (09:44)
[2020-01-13] MEDS: INSULIN ASPART (*BKC) 100 UNITS/ML SUB-Q (09:52)
[2020-01-13 12:24] LABS: Glucose Point of Care 89 (65-105)
[2020-01-13 14:00] VITALS: BP 140/55; PULSE 83; RESP 20; TEMP 36.1; O2SAT 98
[2020-01-13 17:24] LABS: Glucose Point of Care 133 (65-105)
--- NOTE | 2020-01-13 17:50 | WPDNEURORHBP ---
Subjective Date/time seen: 01/13/20 17:50 Interval history: this 74-year-old gentleman is here after having had a relatively complicated course post cervical fusion a doing fairly well except the pain and discomfort he has in the lower back where the drain was put after the laminectomy dressing has been changed no sign of infectious process noted his diabetic control is better his denies any fever chills sore throat headache nausea vomiting or chest Review of Systems Review of Systems: All systems reviewed & are unremarkable except as noted in HPI and below Functional Status Ambulation Ability Ability to Ambulate 10 Feet: Contact Guard Ability to Ambulate 50 Feet With 2 Turns: Contact Guard Ability to Ambulate 150 Feet: Contact Guard Ambulation Assistive Devices: Walker, Wheeled Transfers Ability Ability to Transfer In/Out of Chair: Contact Guard Exam Const: General: comfortable and no acute distress HENMT: General nose exam: Normal nares present Mouth: Yes moist mucous membranes Eyes: General: appearance normal, both eyes and all related structures Neck: Neck: supple and no JVD Resp: Effort & Inspection: normal respiratory effort Auscultation: clear to auscultation bilaterally Cardio: Rate: regular rate Rhythm: regular rhythm GI: GI Palp: Yes Soft to palpation Auscultation: normal bowel sounds Skin: General skin exam: normal color and no rashes or lesions noted Neuro: Other: patient is awake alert well oriented has generalized weakness which is improving and also has lower extremity weakness which is improving and doing fairly well in the rehab Extrem: General: normal to inspection Psych: Mental Status: mental status grossly normal Objective Data Vital Signs Vital Signs: Vital Signs - 24 hr 01/12/20 22:00 01/13/20 06:00 01/13/20 09:44 Temperature 37.1 C 35.9 C L Pulse Rate 94 79 69 Respiratory Rate 18 18 Blood Pressure 148/60 H 137/61 Pulse Oximetry 96 96 01/13/20 14:00 Temperature 36.1 C L Pulse Rate 83 Respiratory Rate 20 Blood Pressure 140/55 L Pulse Oximetry 98 Intake/Output Intake/Output: Intake & Output 01/10/20 01/11/20 01/12/20 01/13/20 23:59 23:59 23:59 23:59 Intake Total 720 1080 720 480 Balance 720 1080 720 480 Meds/Results Medications: Active Medications Generic Name Dose Route Start Last Admin Trade Name Freq PRN Reason Stop Dose Admin Hydrocodone Bitart/Acetaminophen 1 - 2 tab 01/09/20 18:40 01/13/20 17:15 [place] 5-325 Mg PO 2 tab Q4H PRN Administration Pain Rated 4-6 Allopurinol 300 mg 01/10/20 09:00 01/13/20 09:41 Zyloprim PO 300 mg DAILY KIA Administration Amlodipine Besylate 5 mg 01/09/20 21:00 01/13/20 09:42 Norvasc PO 5 mg Q12HR KIA Administration Atorvastatin Calcium 20 mg 01/10/20 09:00 01/13/20 09:41 Lipitor PO 20 mg DAILY KIA Administration Calcium Carbonate 1,000 mg 01/10/20 09:00 01/13/20 09:42 [place] 500 Mg PO 02/09/20 09:01 1,000 mg DAILY KIA Administration Cephalexin HCl 500 mg 01/09/20 21:00 01/13/20 17:15 Keflex Capsule PO 01/19/20 21:01 500 mg Q6H KIA Administration Dextrose 12.5 gm 01/09/20 19:19 Dextrose 50% Syringe IV PUSH PRN PRN Hypoglycemia Protocol Diazepam 5 mg 01/10/20 00:00 Valium Po PO Q6HR PRN Spasms Diltiazem HCl 120 mg 01/09/20 21:00 01/12/20 20:36 Cardizem Tab PO 02/08/20 21:01 120 mg HS KIA Administration Glucagon 1 mg 01/09/20 19:19 Glucagon For Inj IM PRN PRN Hypoglycemia Protocol Glucose 15 gm 01/09/20 19:19 Glutose 15 PO PRN PRN Hypoglycemia Protocol Dextrose 1,000 mls @ 100 mls/hr 01/09/20 19:19 Dextrose 5% 1,000 Ml IVPB PRN PRN Hypoglycemia Protocol Insulin Aspart 5 units 01/10/20 17:00 01/13/20 09:52 Novolog SUB-Q 5 units DAILY KIA Administration Insulin Glargine 20 units 01/12/20 21:00 01/12/20 20:36
[2020-01-13] MEDS: dilTIAZem HCL 60 MG TABLET 120 MG PO (20:26)
[2020-01-13] MEDS: INSULIN GLARGINE (*BKC) 100 UNITS/ML 20 UNITS SUB-Q (20:27)
[2020-01-13 20:36] LABS: Glucose Point of Care 212 (65-105)
[2020-01-13 21:43] VITALS: BP 111/58; PULSE 84; RESP 16; TEMP 36.1; O2SAT 94
[2020-01-14] MEDS: CEPHALEXIN 500 MG CAPSULE PO ×4 (03:00→20:48)
[2020-01-14 05:55] VITALS: BP 129/64; PULSE 74; RESP 16; TEMP 36.3; O2SAT 93
[2020-01-14] MEDS: metFORMIN HCL 500 MG TABLET 1000 MG PO ×2 (06:54→16:56)
[2020-01-14 06:57] LABS: Glucose Point of Care 98 (65-105)
[2020-01-14] MEDS: HYDROcodone/acetaminophen (*CRX) 5-325 MG TABLET PO ×2 (06:57→11:38)
[2020-01-14] MEDS: amLODIPine BESYLATE 5 MG TABLET PO ×2 (09:03→20:48)
[2020-01-14] MEDS: allopurinoL 300 MG TABLET PO (09:03)
[2020-01-14] MEDS: ATORVASTATIN 20 MG TABLET PO (09:04)
[2020-01-14] MEDS: LIDOCAINE 5% PATCH 1 PATCH TOPICAL (09:04)
[2020-01-14] MEDS: lisinopriL 20 MG TABLET 60 MG PO (09:04)
[2020-01-14] MEDS: CALCIUM CARBONATE (OSCAL) 500 MG TABLET 1000 MG PO (09:04)
[2020-01-14] MEDS: CHOLECALCIFEROL 1,000 UNITS TABLET 5000 UNITS PO (09:04)
[2020-01-14 09:06] VITALS: PULSE 74
[2020-01-14] MEDS: TAMSULOSIN HCL 0.4 MG CAPSULE PO (09:06)
[2020-01-14] MEDS: polyethylene glycoL 3350 17 GM POWD.PACK PO (09:06)
[2020-01-14] MEDS: POTASSIUM CHLORIDE 10 MEQ TABLET.ER PO (09:06)
[2020-01-14] MEDS: METOPROLOL TARTRATE 50 MG TAB PO (09:06)
--- NOTE | 2020-01-14 11:10 | WPDNEURORHBP ---
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 anterior cervical diskectomy and fusion plate fixation in November of 2019 along with the history of diabetes mellitus hypertension readmitted with CSF leak and L3 laminectomy for drain along with the IV antibiotics Review of Systems Review of Systems: All systems reviewed & are unremarkable except as noted in HPI and below Functional Status Ambulation Ability Ability to Ambulate 10 Feet: Contact Guard Ability to Ambulate 50 Feet With 2 Turns: Contact Guard Ability to Ambulate 150 Feet: Contact Guard Ambulation Assistive Devices: Walker, Wheeled Transfers Ability Ability to Transfer In/Out of Chair: Contact Guard Exam Narrative: Exam Narrative: examination reveals him to be awake alert cooperative in no obvious acute distress local wound clean and diabetic control better head normocephalic ears nose throat examination normal neck without JVD no meningeal signs lungs without rhonchi or crepitations abdomen is soft with normal bowel sounds heart regular with no murmur abdomen is soft neurologically improving his strength Objective Data Vital Signs Vital Signs: Vital Signs - 24 hr 01/13/20 14:00 01/13/20 21:43 01/14/20 05:55 Temperature 36.1 C L 36.1 C L 36.3 C L Pulse Rate 83 84 74 Respiratory Rate 20 16 16 Blood Pressure 140/55 L 111/58 L 129/64 Pulse Oximetry 98 94 93 01/14/20 09:06 Temperature Pulse Rate 74 Respiratory Rate Blood Pressure Pulse Oximetry Intake/Output Intake/Output: Intake & Output 01/11/20 01/12/20 01/13/20 01/14/20 23:59 23:59 23:59 23:59 Intake Total 1080 720 480 360 Balance 1080 720 480 360 Meds/Results Medications: Active Medications Generic Name Dose Route Start Last Admin Trade Name Freq PRN Reason Stop Dose Admin Hydrocodone Bitart/Acetaminophen 1 - 2 tab 01/09/20 18:40 01/14/20 06:57 [place] 5-325 Mg PO 1 tab Q4H PRN Administration Pain Rated 4-6 Allopurinol 300 mg 01/10/20 09:00 01/14/20 09:03 Zyloprim PO 300 mg DAILY KIA Administration Amlodipine Besylate 5 mg 01/09/20 21:00 01/14/20 09:03 Norvasc PO 5 mg Q12HR KIA Administration Atorvastatin Calcium 20 mg 01/10/20 09:00 01/14/20 09:04 Lipitor PO 20 mg DAILY KIA Administration Calcium Carbonate 1,000 mg 01/10/20 09:00 01/14/20 09:04 Oscal 500 Mg PO 02/09/20 09:01 1,000 mg DAILY KIA Administration Cephalexin HCl 500 mg 01/09/20 21:00 01/14/20 09:04 Keflex Capsule PO 01/19/20 21:01 500 mg Q6H KIA Administration Dextrose 12.5 gm 01/09/20 19:19 Dextrose 50% Syringe IV PUSH PRN PRN Hypoglycemia Protocol Diazepam 5 mg 01/10/20 00:00 Valium Po PO Q6HR PRN Spasms Diltiazem HCl 120 mg 01/09/20 21:00 01/13/20 20:26 Cardizem Tab PO 02/08/20 21:01 120 mg HS KIA Administration Glucagon 1 mg 01/09/20 19:19 Glucagon For Inj IM PRN PRN Hypoglycemia Protocol Glucose 15 gm 01/09/20 19:19 Glutose 15 PO PRN PRN Hypoglycemia Protocol Dextrose 1,000 mls @ 100 mls/hr 01/09/20 19:19 Dextrose 5% 1,000 Ml IVPB PRN PRN Hypoglycemia Protocol Insulin Aspart 5 units 01/10/20 17:00 01/13/20 09:52 Novolog SUB-Q 5 units DAILY KIA Administration Insulin Glargine 20 units 01/12/20 21:00 01/13/20 20:27 Lantus SUB-Q 20 units HS KIA Administration Lidocaine 1 patch 01/10/20 09:00 01/14/20 09:04 Lidoderm TOPICAL 1 patch DAILY KIA Administration Lisinopril 60 mg 01/10/20 09:00 01/14/20 09:04 Prinivil PO 02/09/20 09:01 60 mg DAILY KIA Administration Metformin HCl 1,000 mg 01/10/20 08:00 01/14/20 06:54 Glucophage PO 1,000 mg BIDAC KIA Administration Metoprolol Tartrate 50 mg 01/09/20 20:40 01/14/20 09:06 Lopressor PO 50 mg DAILY KIA Administration Polyethylene Glycol 17 g
[2020-01-14 12:01] LABS: Glucose Point of Care 199 (65-105)
[2020-01-14 14:00] VITALS: BP 90/51; PULSE 80; RESP 18; TEMP 36.6; O2SAT 98
[2020-01-14] MEDS: INSULIN ASPART (*BKC) 100 UNITS/ML SUB-Q (16:55)
[2020-01-14 17:05] LABS: Glucose Point of Care 183 (65-105)
[2020-01-14 20:14] LABS: Glucose Point of Care 151 (65-105)
[2020-01-14] MEDS: dilTIAZem HCL 60 MG TABLET 120 MG PO (20:49)
[2020-01-14] MEDS: HYDROcodone/acetaminophen (*CRX) 5-325 MG TABLET 2 TAB PO (20:52)
[2020-01-14] MEDS: INSULIN GLARGINE (*BKC) 100 UNITS/ML 20 UNITS SUB-Q (20:54)
[2020-01-14 22:00] VITALS: BP 123/63; PULSE 83; RESP 16; TEMP 36.2; O2SAT 95
[2020-01-15] MEDS: CEPHALEXIN 500 MG CAPSULE PO ×4 (02:28→20:45)
[2020-01-15] MEDS: HYDROcodone/acetaminophen (*CRX) 5-325 MG TABLET 2 TAB PO ×3 (02:28→17:03)
[2020-01-15 05:01] LABS: Potassium 4.6 mmol/L (3.4-5.0)
[2020-01-15 06:00] VITALS: BP 126/71; PULSE 65; RESP 16; TEMP 36.8; O2SAT 91
[2020-01-15 06:11] LABS: Glucose Point of Care 104 (65-105)
[2020-01-15] MEDS: metFORMIN HCL 500 MG TABLET 1000 MG PO ×2 (08:49→17:04)
[2020-01-15] MEDS: allopurinoL 300 MG TABLET PO (08:49)
[2020-01-15] MEDS: amLODIPine BESYLATE 5 MG TABLET PO ×2 (08:50→20:45)
[2020-01-15] MEDS: ATORVASTATIN 20 MG TABLET PO (08:50)
[2020-01-15] MEDS: CHOLECALCIFEROL 1,000 UNITS TABLET 5000 UNITS PO (08:50)
[2020-01-15] MEDS: LIDOCAINE 5% PATCH 1 PATCH TOPICAL (08:50)
[2020-01-15] MEDS: CALCIUM CARBONATE (OSCAL) 500 MG TABLET 1000 MG PO (08:51)
[2020-01-15] MEDS: lisinopriL 20 MG TABLET 60 MG PO (08:51)
[2020-01-15] MEDS: polyethylene glycoL 3350 17 GM POWD.PACK PO (08:51)
[2020-01-15] MEDS: POTASSIUM CHLORIDE 10 MEQ TABLET.ER PO (08:51)
[2020-01-15] MEDS: TAMSULOSIN HCL 0.4 MG CAPSULE PO (08:51)
[2020-01-15 08:52] VITALS: PULSE 65
[2020-01-15] MEDS: METOPROLOL TARTRATE 50 MG TAB PO (08:52)
[2020-01-15 12:14] LABS: Glucose Point of Care 140 (65-105)
[2020-01-15 14:00] VITALS: BP 117/53; PULSE 80; RESP 18; TEMP 36.4; O2SAT 96
--- NOTE | 2020-01-15 15:24 | WPDNEURORHBP ---
Subjective Date/time seen: 01/15/20 15:24 Interval history: this 74-year-old gentleman is here after having had the seroma removed for the CSF leak from the surgical site of the cervix cervical fusion on the right side he is a diabetic and present doses of insulin is keeping his diabetes fairly decently controlled the patient's hampering factor is the pain which it is best is fair to good control sometimes not as good however is doing very well from the nursing standpoint PT OT and gait standpoint denies any headache nausea vomiting chest pain shortness of breath fever chills sore throat Review of Systems Review of Systems: All systems reviewed & are unremarkable except as noted in HPI and below Functional Status Ambulation Ability Ability to Ambulate 10 Feet: Standby Assistance Ability to Ambulate 50 Feet With 2 Turns: Standby Assistance Ability to Ambulate 150 Feet: Contact Guard Ambulation Assistive Devices: Walker, Wheeled Transfers Ability Ability to Transfer In/Out of Chair: Independent Exam Const: General: comfortable and no acute distress HENMT: General nose exam: Normal nares present Mouth: Yes moist mucous membranes Eyes: General: appearance normal, both eyes and all related structures Neck: Neck: supple and no JVD Resp: Effort & Inspection: normal respiratory effort Auscultation: clear to auscultation bilaterally Cardio: Rate: regular rate Rhythm: regular rhythm GI: GI Palp: Yes Soft to palpation Auscultation: normal bowel sounds Skin: General skin exam: normal color and no rashes or lesions noted Neuro: Other: patient is awake alert well oriented his weakness is improving and is slated to be discharged in couple of days overall is improvement pain is fair control Extrem: General: normal to inspection Psych: Mental Status: mental status grossly normal Objective Data Vital Signs Vital Signs: Vital Signs - 24 hr 01/14/20 22:00 01/15/20 06:00 01/15/20 08:52 Temperature 36.2 C L 36.8 C Pulse Rate 83 65 65 Respiratory Rate 16 16 Blood Pressure 123/63 126/71 Pulse Oximetry 95 91 01/15/20 14:00 Temperature 36.4 C L Pulse Rate 80 Respiratory Rate 18 Blood Pressure 117/53 L Pulse Oximetry 96 Intake/Output Intake/Output: Intake & Output 01/12/20 01/13/20 01/14/20 01/15/20 23:59 23:59 23:59 23:59 Intake Total 720 480 840 600 Balance 720 480 840 600 Meds/Results Medications: Active Medications Generic Name Dose Route Start Last Admin Trade Name Freq PRN Reason Stop Dose Admin Hydrocodone Bitart/Acetaminophen 1 tab 01/14/20 13:21 [place] 5-325 Mg PO Q4H PRN Pain Rated 4-6 Hydrocodone Bitart/Acetaminophen 2 tab 01/14/20 13:21 01/15/20 08:48 [place] 5-325 Mg PO 2 tab Q4H PRN Administration Pain Rated 7-10 Allopurinol 300 mg 01/10/20 09:00 01/15/20 08:49 Zyloprim PO 300 mg DAILY KIA Administration Amlodipine Besylate 5 mg 01/09/20 21:00 01/15/20 08:50 Norvasc PO 5 mg Q12HR KIA Administration Atorvastatin Calcium 20 mg 01/10/20 09:00 01/15/20 08:50 Lipitor PO 20 mg DAILY KIA Administration Calcium Carbonate 1,000 mg 01/10/20 09:00 01/15/20 08:51 Oscal 500 Mg PO 02/09/20 09:01 1,000 mg DAILY KIA Administration Cephalexin HCl 500 mg 01/09/20 21:00 01/15/20 14:13 Keflex Capsule PO 01/19/20 21:01 500 mg Q6H KIA Administration Dextrose 12.5 gm 01/09/20 19:19 Dextrose 50% Syringe IV PUSH PRN PRN Hypoglycemia Protocol Diazepam 5 mg 01/10/20 00:00 Valium Po PO Q6HR PRN Spasms Diltiazem HCl 120 mg 01/09/20 21:00 01/14/20 20:49 Cardizem Tab PO 02/08/20 21:01 120 mg HS KIA Administration Glucagon 1 mg 01/09/20 19:19 Glucagon For Inj IM PRN PRN Hypoglycemia Protocol Glucose 15 gm 01/09/20 19:19 Glutose 15 PO PRN PRN Hypoglycemia Protocol Dextrose 1,000 mls @ 100 mls/hr 01/09/20 19:19 Dextrose 5
[2020-01-15 17:34] LABS: Glucose Point of Care 145 (65-105)
[2020-01-15] MEDS: INSULIN ASPART (*BKC) 100 UNITS/ML SUB-Q (17:41)
[2020-01-15 20:45] LABS: Glucose Point of Care 128 (65-105)
[2020-01-15] MEDS: dilTIAZem HCL 60 MG TABLET 120 MG PO (20:45)
[2020-01-15] MEDS: INSULIN GLARGINE (*BKC) 100 UNITS/ML 20 UNITS SUB-Q (20:46)
[2020-01-15 22:00] VITALS: BP 116/63; PULSE 88; RESP 16; TEMP 36.6; O2SAT 96
[2020-01-16] MEDS: HYDROcodone/acetaminophen (*CRX) 5-325 MG TABLET 2 TAB PO ×3 (01:07→21:46)
[2020-01-16] MEDS: CEPHALEXIN 500 MG CAPSULE PO ×4 (02:32→21:48)
[2020-01-16 05:56] VITALS: BP 118/62; PULSE 75; RESP 20; TEMP 36.1; O2SAT 95
[2020-01-16 06:36] LABS: Glucose Point of Care 90 (65-105)
[2020-01-16] MEDS: polyethylene glycoL 3350 17 GM POWD.PACK PO (08:50)
[2020-01-16] MEDS: LIDOCAINE 5% PATCH 1 PATCH TOPICAL (08:50)
[2020-01-16] MEDS: lisinopriL 20 MG TABLET 60 MG PO (08:50)
[2020-01-16] MEDS: CHOLECALCIFEROL 1,000 UNITS TABLET 5000 UNITS PO (08:51)
[2020-01-16] MEDS: POTASSIUM CHLORIDE 10 MEQ TABLET.ER PO (08:52)
[2020-01-16] MEDS: metFORMIN HCL 500 MG TABLET 1000 MG PO ×2 (08:52→17:00)
[2020-01-16] MEDS: amLODIPine BESYLATE 5 MG TABLET PO ×2 (08:52→21:50)
[2020-01-16] MEDS: TAMSULOSIN HCL 0.4 MG CAPSULE PO (08:52)
[2020-01-16] MEDS: ATORVASTATIN 20 MG TABLET PO (08:52)
[2020-01-16] MEDS: CALCIUM CARBONATE (OSCAL) 500 MG TABLET 1000 MG PO (08:52)
[2020-01-16] MEDS: allopurinoL 300 MG TABLET PO (08:52)
[2020-01-16 08:53] VITALS: PULSE 82
[2020-01-16] MEDS: METOPROLOL TARTRATE 50 MG TAB PO (08:53)
[2020-01-16] MEDS: HYDROcodone/acetaminophen (*CRX) 5-325 MG TABLET 1 TAB PO (08:53)
--- NOTE | 2020-01-16 11:11 | WPDNEURORHBP ---
Subjective Date/time seen: 01/16/20 11:11 Interval history: this 74-year-old gentleman who is diabetic was here for spinal cord dysfunction related to the previous cervical surgery with fusion followed by seroma with the removal of seroma followed by a drain in the lumbosacral area after laminectomy for spinal fluid leak the patient has finish the rehab and did very well he does still have pain in his lower back and ready to be discharged tomorrow with a follow-up appointment with the surgeon later during the day again tomorrow he denies any headache nausea vomiting chest pain shortness of breath fever chills sore throat he says he has all the medications at home except he will need the pain medication for the control of the pain in his and lower back he has improved significantly in his walking and the strength overall picture has improved and there is no sign of reoccurrence of the seroma and the back incision is clean Review of Systems Review of Systems: All systems reviewed & are unremarkable except as noted in HPI and below Functional Status Ambulation Ability Ability to Ambulate 10 Feet: Independent Ability to Ambulate 50 Feet With 2 Turns: Independent Ability to Ambulate 150 Feet: Contact Guard Ambulation Assistive Devices: Walker, Wheeled Transfers Ability Ability to Transfer In/Out of Chair: Independent Exam Const: General: comfortable and no acute distress HENMT: General nose exam: Normal nares present Mouth: Yes moist mucous membranes Eyes: General: appearance normal, both eyes and all related structures Neck: Neck: supple and no JVD Resp: Effort & Inspection: normal respiratory effort Auscultation: clear to auscultation bilaterally Cardio: Rate: regular rate Rhythm: regular rhythm GI: GI Palp: Yes Soft to palpation Auscultation: normal bowel sounds Back/Spine/Pelvis: Other: the incision in the lower back is clean no drainage is noted no sign of infection Skin: General skin exam: normal color and no rashes or lesions noted Neuro: Other: patient is awake alert well oriented time place person his strength has improved overall and his going to get the home health to continue option of therapy and the follow-up with the physicians Extrem: General: normal to inspection Psych: Mental Status: mental status grossly normal Objective Data Vital Signs Vital Signs: Vital Signs - 24 hr 01/15/20 14:00 01/15/20 22:00 01/16/20 05:56 Temperature 36.4 C L 36.6 C 36.1 C L Pulse Rate 80 88 75 Respiratory Rate 18 16 20 Blood Pressure 117/53 L 116/63 118/62 Pulse Oximetry 96 96 95 01/16/20 08:53 Temperature Pulse Rate 82 Respiratory Rate Blood Pressure Pulse Oximetry Intake/Output Intake/Output: Intake & Output 01/13/20 01/14/20 01/15/20 01/16/20 23:59 23:59 23:59 23:59 Intake Total 480 840 840 Balance 480 840 840 Meds/Results Medications: Active Medications Generic Name Dose Route Start Last Admin Trade Name Freq PRN Reason Stop Dose Admin Hydrocodone Bitart/Acetaminophen 1 tab 01/14/20 13:21 01/16/20 08:53 [place] 5-325 Mg PO 1 tab Q4H PRN Administration Pain Rated 4-6 Hydrocodone Bitart/Acetaminophen 2 tab 01/14/20 13:21 01/16/20 01:07 [place] 5-325 Mg PO 2 tab Q4H PRN Administration Pain Rated 7-10 Allopurinol 300 mg 01/10/20 09:00 01/16/20 08:52 Zyloprim PO 300 mg DAILY KIA Administration Amlodipine Besylate 5 mg 01/09/20 21:00 01/16/20 08:52 Norvasc PO 5 mg Q12HR KIA Administration Atorvastatin Calcium 20 mg 01/10/20 09:00 01/16/20 08:52 Lipitor PO 20 mg DAILY KIA Administration Calcium Carbonate 1,000 mg 01/10/20 09:00 01/16/20 08:52 Oscal 500 Mg PO 02/09/20 09:01 1,000 mg DAILY KIA Administration Cephalexin HCl 500 mg 01/09/20 21:00 01/16/20 08:53 Keflex Capsule PO 01/19/20 21:01 500 mg Q6H KIA Administration Dextrose 12.5 gm 01/09/20 19:19 Dextrose 50% Syringe IV PUSH PRN
[2020-01-16 12:05] VITALS: BMI 28.0
[2020-01-16 12:15] LABS: Glucose Point of Care 151 (65-105)
[2020-01-16 14:00] VITALS: BP 98/55; PULSE 80; RESP 16; TEMP 36.4; O2SAT 94
[2020-01-16] MEDS: INSULIN ASPART (*BKC) 100 UNITS/ML SUB-Q (16:30)
[2020-01-16 17:07] VITALS: BP 125/57; PULSE 81; RESP 18; TEMP 36.4; O2SAT 100
[2020-01-16 18:52] LABS: Glucose Point of Care 245 (65-105)
[2020-01-16] MEDS: dilTIAZem HCL 60 MG TABLET 120 MG PO (21:49)
[2020-01-16 22:00] VITALS: BP 113/56; PULSE 78; RESP 6; TEMP 36.3; O2SAT 95
[2020-01-17] MEDS: HYDROcodone/acetaminophen (*CRX) 5-325 MG TABLET 2 TAB PO ×2 (04:06→09:27)
[2020-01-17] MEDS: CEPHALEXIN 500 MG CAPSULE PO ×2 (04:07→09:19)
[2020-01-17 05:20] LABS: Basophils Absolute Auto 0.1 K/mm3 (0.0-0.1); Basophils Percent Auto 0.6 % (0.2-1.2); Eosinophils Absolute Auto 0.3 K/mm3 (0-0.3); Eosinophils Percent Auto 3.3 % (0-4.4); Hematocrit 34.3 % (42.0-52.0); Hemoglobin 10.9 g/dL (14.0-18.0); Immature Granulocyte Absolute 0.04 K/mm3 (0.00-0.031); Immature Granulocyte Percent A 0.5 % (0-0.5); Lymphocytes Absolute Auto 3.09 K/mm3 (0.9-3.2); Lymphocytes Percent Auto 36.4 % (18.3-44.2); Mean Corpuscular HGB Conc 31.8 g/dl (32-36); Mean Corpuscular Hemoglobin 30.5 pg (26-34); Mean Corpuscular Volume 96.1 fl (80-100); Mean Platelet Volume 9.8 fl (7.4-10.4); Monocytes Absolute Auto 0.8 K/mm3 (0.1-0.6); Neutrophils Absolute Auto 4.3 K/mm3 (1.3-6.7); Neutrophils Percent Auto 50.2 % (45.5-73.1); Platelet Count Result 312 k/mm3 (150-375); Red Blood Count 3.57 M/mm3 (4.6-6.20); Red Cell Distribution Width 14.1 % (11.5-14.5); White Blood Count 8.5 K/mm3 (4.5-10.0)
[2020-01-17 05:35] LABS: Potassium 4.3 mmol/L (3.4-5.0)
[2020-01-17 06:00] VITALS: BP 148/74; PULSE 82; RESP 18; TEMP 36.4; O2SAT 96
[2020-01-17 06:01] LABS: Anion Gap 6 mmol/L (8-16); Blood Urea Nitrogen 15 mg/dL (9-20); Calcium 9.8 mg/dL (8.4-10.2); Carbon Dioxide 28 mmol/L (22-30); Chloride 102 mmol/L (98-107); Estimated CRCL calculation 63 ml/min; Estimated Glomerular Filt Rate > 60; Glucose 99 mg/dL (75-110); Sodium 136 mmol/L (137-145)
[2020-01-17 06:22] LABS: Glucose Point of Care 115 (65-105)
[2020-01-17 07:13] LABS: Glucose Point of Care 90 (65-105)
[2020-01-17 08:00] VITALS: PULSE 82; RESP 18; O2SAT 96
[2020-01-17 09:18] VITALS: PULSE 82
[2020-01-17] MEDS: METOPROLOL TARTRATE 50 MG TAB PO (09:18)
[2020-01-17] MEDS: LIDOCAINE 5% PATCH 1 PATCH TOPICAL (09:18)
[2020-01-17] MEDS: CHOLECALCIFEROL 1,000 UNITS TABLET 5000 UNITS PO (09:18)
[2020-01-17] MEDS: CALCIUM CARBONATE (OSCAL) 500 MG TABLET 1000 MG PO (09:18)
[2020-01-17] MEDS: allopurinoL 300 MG TABLET PO (09:19)
[2020-01-17] MEDS: ATORVASTATIN 20 MG TABLET PO (09:19)
[2020-01-17] MEDS: TAMSULOSIN HCL 0.4 MG CAPSULE PO (09:19)
[2020-01-17] MEDS: amLODIPine BESYLATE 5 MG TABLET PO (09:19)
[2020-01-17] MEDS: lisinopriL 20 MG TABLET 60 MG PO (09:20)
--- NOTE | 2020-01-17 09:21 | WPDNEURORHBP ---
Subjective Date/time seen: 01/17/20 09:21 Interval history: this 74-year-old woman has finished the rehab is doing fairly well his sugars have been decent and he wants to go back on to [place] which is equal to Lantus as he says and use the 22 units and he has enough supply at home his overall has done very well his medications have been reconciled denies any headache nausea vomiting chest pain shortness of breath fever chills sore throat is strength has significantly improved from the time we have received him Review of Systems Review of Systems: All systems reviewed & are unremarkable except as noted in HPI and below Functional Status Ambulation Ability Ability to Ambulate 10 Feet: Independent Ability to Ambulate 50 Feet With 2 Turns: Independent Ability to Ambulate 150 Feet: Contact Guard Ambulation Assistive Devices: Walker, Wheeled Transfers Ability Ability to Transfer In/Out of Chair: Independent Exam Const: General: comfortable and no acute distress HENMT: General nose exam: Normal nares present Mouth: Yes moist mucous membranes Eyes: General: appearance normal, both eyes and all related structures Other: the incision from the cervical fusion at the anterior aspect of the right neck is clean and healthy there is no swelling there is no redness there is no tenderness nothing to suggest accumulation of the CSF as he has had before Neck: Neck: supple and no JVD Resp: Effort & Inspection: normal respiratory effort Auscultation: clear to auscultation bilaterally Cardio: Rate: regular rate Rhythm: regular rhythm GI: GI Palp: Yes Soft to palpation Auscultation: normal bowel sounds Skin: General skin exam: normal color and no rashes or lesions noted Neuro: Other: patient is awake alert well oriented time place and person his generalized weakness has improved his strength in both upper lower extremity has improved is walking quite a bit and underlying carpal tunnels syndrome and with his sensory deficit in his hands remains stable he will follow-up with surgeon this afternoon Extrem: General: normal to inspection Psych: Mental Status: mental status grossly normal Objective Data Vital Signs Vital Signs: Vital Signs - 24 hr 01/16/20 14:00 01/16/20 17:07 01/16/20 22:00 Temperature 36.4 C L 36.4 C L 36.3 C L Pulse Rate 80 81 78 Respiratory Rate 16 18 6 L Blood Pressure 98/55 L 125/57 L 113/56 L Pulse Oximetry 94 100 95 0924/20 06:00 Temperature 36.4 C Pulse Rate 82 Respiratory Rate 18 Blood Pressure 148/74 H Pulse Oximetry 96 Intake/Output Intake/Output: Intake & Output 01/14/20 01/15/20 01/16/20 01/17/20 23:59 23:59 23:59 23:59 Intake Total 840 840 720 240 Balance 840 840 720 240 Meds/Results Medications: Active Medications Generic Name Dose Route Start Last Admin Trade Name Freq PRN Reason Stop Dose Admin Hydrocodone Bitart/Acetaminophen 1 tab 01/14/20 13:21 01/16/20 08:53 [place] 5-325 Mg PO 1 tab Q4H PRN Administration Pain Rated 4-6 Hydrocodone Bitart/Acetaminophen 2 tab 01/14/20 13:21 01/17/20 04:06 [place] 5-325 Mg PO 2 tab Q4H PRN Administration Pain Rated 7-10 Allopurinol 300 mg 01/10/20 09:00 01/16/20 08:52 Zyloprim PO 300 mg DAILY KIA Administration Amlodipine Besylate 5 mg 01/09/20 21:00 01/16/20 21:50 Norvasc PO 5 mg Q12HR KIA Administration Atorvastatin Calcium 20 mg 01/10/20 09:00 01/16/20 08:52 Lipitor PO 20 mg DAILY KIA Administration Calcium Carbonate 1,000 mg 01/10/20 09:00 01/16/20 08:52 Oscal 500 Mg PO 02/09/20 09:01 1,000 mg DAILY KIA Administration Cephalexin HCl 500 mg 01/09/20 21:00 01/17/20 04:07 Keflex Capsule PO 01/19/20 21:01 500 mg Q6H KIA Administration Dextrose 12.5 gm 01/09/20 19:19 Dextrose 50% Syringe IV PUSH PRN PRN Hypoglycemia Protocol Diazepam 5 mg 01/10/20 00:00 Valium Po PO Q6HR PRN Spasms Diltiazem HCl 120 mg
--- NOTE | 2020-01-19 11:25 | PM.DS ---
DS: Admitting Diagnosis Admitting Diagnosis Admitting Diagnosis: 74 years old male admitted to the acute rehab of [facility] with rehab impairment category of his spinal cord dysfunction of nontraumatic in nature with etiological diagnosis of accumulating wound seroma secondary to CSF leak. Patient has undergone cervical surgery followed by the rehab on this floor in addition has history of comorbid condition 1. Diabetes mellitus 2. Hypertension 3. Status post C4-C5 anterior cervical diskectomy and fusion with plate fixation on December 04, 2019 with tiny durotomy requiring the patch roughly 3 weeks follow-up appointment. he was noted to have significant subcutaneous kiara-incisional swelling which was aspirated in the office by the neurosurgeon , fluid was xanthochromic in appearance but the fluid reaccumulated few days later and he was calledl back with a possible drain placement on December 28, 2019 underwent L3 laminectomy for subarachnoid drain placement starting IV Ancef and 1 vancomycin. drain was discontinued on January 07, 2020 subsequently there was no reaccumulation of the fluid but he was noted to be acutely anemic and hypertensive with postoperative pain .hypertension was controlled and discharged to the rehab on antibiotic for 10 day course that is oral cephalexin with [place] collar cervical brace in place. During the hospitalization on the rehab he was involved in a physical therapy and occupational therapy. at the time of discharge he was able to ambulate independently 10ft, 50ft with 2 turns, 150ft with contact guard and wheeled walker. he was able to transfer in and out of chair independently. General physical examination remained stable there was no drainage from the cervical fusion drain area without any redness and tenderness general physical examination was stable and so as the neurological examination. At the time of discharge he was independent in eating,oral hygiene, toileting, bathing upper body, dressing lower body dressing ,footwear, rolling in bed ,sit to lying ,lying to sit ,[id number] ,chair transfer toilet transfer, car transfer, 10ft walking 50ft walking with 2 turns, 10ft walking on uneven surfaces,4 steps and picking up objects. he had no fall or injuries during the hospitalization. he was discharged to his home DS: Discharge Diagnosis Discharge Diagnosis (1) S/P laminectomy: Code(s): Z98.890 - Other specified postprocedural states Status: Acute (2) CSF leak: Code(s): G96.0 - Cerebrospinal fluid leak Status: Acute (3) Diabetes mellitus with neuropathy: Code(s): E11.40 - Type 2 diabetes mellitus with diabetic neuropathy, unspecified Status: Acute (4) Carpal tunnel syndrome: Code(s): G56.00 - Carpal tunnel syndrome, unspecified upper limb Status: Acute (5) Chronic low back pain: Code(s): M54.5 - Low back pain; G89.29 - Other chronic pain Status: Acute (6) Status post cervical spinal fusion: Code(s): Z98.1 - Arthrodesis status Status: Acute (7) Cervical myelopathy: Code(s): G95.9 - Disease of spinal cord, unspecified Status: Acute DS: Summary Time Spent with Patient Time attestation: Total time spent providing and/or coordinating discharge services: Discharge Plan Discharge Attending physician on discharge: Ever Venegas Discharging Clinician: Ever Venegas Anticipated Discharge Date/Time: 01/17/20 11:15 Patient Disposition: Home Health Service Activity: may shower and no driving Diet: diabetic Wound Care Instructions: follow printed instructions Discharge Instructions: Per Care Coordination: [facility] can be contacted at [phone]. [phone]. Patient to resumeToujeou 20 units subcu at night in place of Lantus and make sure he check a sugars and if th
== END 2020-01-17 11:35 | disposition home health service (06) | DRG 560 ==
PROVIDERS: Admitting Provider Psychiatry & Neurology Neurology; Visit Provider Psychiatry & Neurology Neurology
DX: Z47.89 Encounter for other orthopedic aftercare (principal); M96.842 Postprocedural seroma of a musculoskeletal structure following a musculoskeletal system procedure; G96.0 Cerebrospinal fluid leak; G95.89 Other specified diseases of spinal cord; M48.02 Spinal stenosis, cervical region; D47.3 Essential (hemorrhagic) thrombocythemia; D64.9 Anemia, unspecified; E11.42 Type 2 diabetes mellitus with diabetic polyneuropathy; E11.65 Type 2 diabetes mellitus with hyperglycemia; E78.5 Hyperlipidemia, unspecified; G56.01 Carpal tunnel syndrome, right upper limb; G89.29 Other chronic pain; I10 Essential (primary) hypertension; M10.9 Gout, unspecified; N40.0 Benign prostatic hyperplasia without lower urinary tract symptoms; R22.41 Localized swelling, mass and lump, right lower limb; R26.9 Unspecified abnormalities of gait and mobility; R29.6 Repeated falls; Z98.1 Arthrodesis status; Z79.4 Long term (current) use of insulin; Z87.891 Personal history of nicotine dependence
CPT/HCPCS: 36415; 80048; 83036; 84132; 85025; 97110; 97116; 97161; 97166; 97530; 97535; A9270; J1815